=== PATIENT | male | born 1935 | race Caucasian/White ===

== ENCOUNTER 2020-11-11 10:00 | Emergency (ER) | payer MEDICARE, BC ==
[2020-11-11 10:11] VITALS: BP 142/73
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
== END 2020-11-11 11:26 | disposition home or self-care (01) ==
LOC: ED 10:00
DX: Z76.0 Encounter for issue of repeat prescription (principal); G89.29 Other chronic pain; M54.5 Low back pain
CPT/HCPCS: 99282; 99283

== ENCOUNTER 2023-04-26 11:12 | Outpatient (CLI) | payer MEDICARE, BC | END 2023-04-26 23:59 | disposition critical access hospital (66) | LOC: MERGE 11:12 → EMS 11:12 | DX: R41.0 Disorientation, unspecified (principal); S01.81XA Laceration without foreign body of other part of head, initial encounter; S01.01XA Laceration without foreign body of scalp, initial encounter; S70.211A Abrasion, right hip, initial encounter; W18.30XA Fall on same level, unspecified, initial encounter; Y92.028 Other place in mobile home as the place of occurrence of the external cause; T68.XXXA Hypothermia, initial encounter; X31.XXXA Exposure to excessive natural cold, initial encounter | CPT/HCPCS: A0425; A0427 ==

== ENCOUNTER 2023-04-26 11:41 | Inpatient (IN) | payer MEDICARE, BC ==
[2023-04-26] MEDS ORDERED: iohexoL-300 100 ML VIAL ONE (11:48)
[2023-04-26] MEDS ORDERED: TETANUS/DIPHTHERIA/PERTUSSIS 0.5 ML SYRINGE IM ONE (11:49)
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
[2023-04-26 12:02] LABS: VBG PH 7.416 (7.31-7.41)
[2023-04-26 12:03] LABS: VBG BASE EXCESS -2.3 mmol/L (-2 - +2); VBG HCO3 21.9 mmol/L (23-28); VBG OXYGEN SATURATION 97.6 % (60-80); VBG PCO2 34.8 mmHg (41-51); VBG PO2 120.9 mmHg (25-47); VBG TOTAL CO2 22.9 mmol/L (24-29)
[2023-04-26 12:07] LABS: BASOPHILS % (AUTO) 0.6 %; EOSINOPHILS % (AUTO) 0.6 %; HCT - HEMATOCRIT 24.8 % (42.0-52.0); HGB - HEMOGLOBIN 8.6 g/dL (14.0-18.0); LYMPHOCYTES % (AUTO) 17.9 %; MEAN CORPUSCULAR HEMOGLOBIN 37.6 pg (27.0-31.0); MEAN CORPUSCULAR HGB CONC 34.7 g/dL (32.0-36.0); MEAN CORPUSCULAR VOLUME 108.3 fL (80.0-94.0); MEAN PLATELET VOLUME 10.3 fL (7.4-11.4); MONOCYTES % (AUTO) 6.5 %; NEUTROPHILS % (AUTO) 74.4 %; PLT - PLATELET COUNT 87 10^3/uL (130-450); RED BLOOD COUNT 2.29 10^6/uL (4.70-6.10); RED CELL DISTRIBUTION WIDTH 12.6 % (12.0-15.0)
[2023-04-26 12:10] LABS: WHITE BLOOD COUNT 1.7 x10^3/uL (4.8-10.8)
[2023-04-26 12:12] LABS: ABNORMAL LYMPHS % (MANUAL) 0 %
[2023-04-26 12:16] LABS: INR 1.2 (0.8-1.2)
[2023-04-26 12:23] LABS: ETOH - ETHANOL 83.7 mg/dL
[2023-04-26 12:24] LABS: ALBUMIN 2.2 g/dL (3.2-5.5); BILIRUBIN,TOTAL 0.7 mg/dL (0.2-1.0); CALCIUM 7.8 mg/dL (8.5-10.3); CREATININE 0.5 mg/dL (0.6-1.3); TOTAL PROTEIN 4.4 g/dL (6.4-8.9)
[2023-04-26 12:25] LABS: LACTIC ACID, VENOUS 4.1 mmol/L (0.5-2.2)
[2023-04-26 12:28] LABS: BILIRUBIN,URINE NEGATIVE (NEGATIVE); GLUCOSE, URINE (UA) NEGATIVE (NEGATIVE); KETONES,URINE (UA) NEGATIVE (NEGATIVE); LEUKOCYTE ESTERASE, URINE NEGATIVE (NEGATIVE); NITRITE,URINE NEGATIVE (NEGATIVE); OCCULT BLOOD,URINE TRACE-INTA (NEGATIVE); PROTEIN,URINE NEGATIVE (NEGATIVE); UROBILINOGEN,URINE 1 (NORMAL) E.U./dL (NORMAL)
[2023-04-26 12:29] LABS: CLARITY,URINE CLEAR (CLEAR)
[2023-04-26 12:31] LABS: BACTERIA,URINE Rare /HPF (None Seen); RBC,URINE 0-5 /HPF (0-5); SQUAMOUS EPITHELIAL CELL,UR FEW Squamous (<= Few); WBC,URINE 0-3 /HPF (0-3)
[2023-04-26 12:32] LABS: THYROID STIMULATING HORMONE 1.13 uIU/mL (0.34-5.60)
[2023-04-26 12:35] LABS: BAND NEUTROPHILS % (MANUAL) 9 %; LYMPHOCYTES # (MANUAL) 0.3 10^3/uL (1.5-3.5); LYMPHOCYTES % (MANUAL) 15 %; MONOCYTES # (MANUAL) 0.1 10^3/uL (0.0-1.0); NEUTROPHILS # (MANUAL) 1.4 10^3/uL (1.5-6.6)
[2023-04-26 12:36] LABS: DIFFERENTIAL COMMENT MANUAL DIFFERENTIAL; PLATELET ESTIMATE, MANUAL DECREASED (<130,000) (NORMAL); PLATELET MORPHOLOGY 1+ LARGE PLATELETS (NORMAL); WBC MORPHOLOGY (MULTIPLE) NORMAL APPEARANCE (NORMAL)
[2023-04-26 12:36] LABS: AMPHETAMINE SCREEN,URINE NEGATIVE (NEGATIVE); BARBITURATE SCREEN,UR NEGATIVE (NEGATIVE); BENZODIAZEPINES SCREEN, URINE NEGATIVE (NEGATIVE); BUPRENORPHINE SCREEN, URINE NEGATIVE (NEGATIVE); COCAINE SCREEN URINE NEGATIVE (NEGATIVE); METHADONE SCREEN, URINE NEGATIVE (NEGATIVE); METHAMPHETAMINES SCREEN, URINE NEGATIVE (NEGATIVE); OPIATE SCREEN, URINE NEGATIVE (NEGATIVE); OXYCODONE SCREEN, URINE POSITIVE (NEGATIVE); THC CANNABINOID SCREEN, URINE NEGATIVE (NEGATIVE); TRICYCLIC ANTIDEPRESSANT,URINE NEGATIVE (NEGATIVE)
[2023-04-26] MEDS: iohexoL-300 100 ML VIAL IVP ONE (12:53)
[2023-04-26] MEDS: CEFEPIME 2 GM in SODIUM CHLORIDE 0.9% MINIBAG 100 ML IV STA (12:54)
[2023-04-26] MEDS: metroNIDAZOLE 500 MG/100 ML 500 MG/100 ML BAG IV STA (12:57)
--- NOTE | 2023-04-26 13:09 | CT Report ---
PROCEDURE: Head WO INDICATIONS: Head trauma, abnormal mental status TECHNIQUE: Noncontrast 4.5 mm thick angled axial sections acquired from the foramen magnum to the vertex. For r adiation dose reduction, the following was used: automated exposure control, adjustment of mA and/or kV according to patient size. COMPARISON: Correlation is made with the accompanying imaging. FINDINGS: Image quality: Excellent. CSF spaces: Basal cisterns are patent. No extra-axial fluid collections. Ventricles are normal in size and shape. Brain: No midline shift. No intracranial masses or hemorrhage. Real-white matter interface is norm al. Low density seen involving the right temporal lobe, as on series 2 image 11 and on series 6 imag e 21. Age-appropriate brain parenchymal volume loss and chronic small vessel ischemic change can be s een. Skull and face: There is a mild left forehead hematoma seen, as on series 2 image 16. No associated calvarial fracture can be seen. Calvarium and visualized facial bones are intact, without suspicious lesions. Sinuses: Visualized sinuses and mastoids are clear. IMPRESSION: Left forehead scalp hematoma, without an associated calvarial fracture. No intracranial hemorrhage is seen. No significant intracranial abnormality is seen. There is focal low density seen involving the right temporal lobe, which is attributed to a remote in farct. Reviewed by: Kb Patel MD on 04/26/2023 12:08 PM [facility] Approved by: Kb Patel MD on 04/26/2023 12:08 PM [facility] Station ID: [id number]
--- NOTE | 2023-04-26 13:17 | CT Report ---
PROCEDURE: Cervical Spine WO INDICATIONS: Neck trauma, midline tenderness TECHNIQUE: Noncontrast 3 mm thick sections acquired from the skull base to the T4 level. Sagittal and coronal r eformats were then constructed. For radiation dose reduction, the following was used: automated exp osure control, adjustment of mA and/or kV according to patient size. COMPARISON: Correlation is made with the accompanying imaging. FINDINGS: Image quality: Motion artifact is noted. Bones: Moderately displaced are seen involving the anterior aspects of the C3 and C4 levels, as seen on series 13 image 41. Over the anterior columns are involved, without involvement of the middle colu mns or the posterior elements. Focal degenerative change can be seen involving the C1-C2 interface anteriorly. There is moderate to severe disc space narrowing at C3-C4, C5-C6, and C6-C7. Posterior directed endplate osteophytes can b e seen at C5-C6 and at C6-C7. Soft tissues: Prevertebral soft tissues are normal in thickness. No paravertebral hematomas. No ap ical pneumothoraces. Atherosclerotic calcification is seen. IMPRESSION: Moderately displaced fractures can be seen involving the anterior aspects of the C3 and C4 levels, wi thout involvement of the middle and posterior columns. Note: Case discussed by telephone with Dr. Rubio at 1:15 PM [place] time on 04/26/2023. Reviewed by: Kb Patel MD on 04/26/2023 12:16 PM [facility] Approved by: Kb Patel MD on 04/26/2023 12:16 PM [facility] Station ID: [id number]
--- NOTE | 2023-04-26 13:20 | CT Report ---
PROCEDURE: Chest W INDICATIONS: Chest trauma, blunt, low energy CONTRAST: 100ml omni 300 TECHNIQUE: After the administration of intravenous contrast, a CT scan of the chest was performed. Images were recorded and evaluated at appropriate window settings. Reformats: axial MIP of the chest, coronal and sagittal. For radiation dose reduction, the following was used: automated exposure control, adjustme nt of mA and/or kV according to patient size. COMPARISON: Correlation is made with the accompanying imaging. FINDINGS: Image quality: Excellent. Lungs and pleura: No consolidation. There is a small left-sided pleural effusion. No pneumothorax is seen. No suspicious pulmonary nodules which require follow up. Mediastinum: There is a mild amount of pulmonary embolism seen within the right lower lobe, involving the segmental and subsegmental arteries. Heart size is normal. No pericardial effusion. There is mild to moderate coronary artery calcificatio n No large vessel abnormality. No mediastinal adenopathy by size criteria. Chest wall and lower neck: Thyroid is unremarkable. No axillary or supraclavicular adenopathy by size . Bones: No aggressive osseous abnormality. Multiple remote appearing rib fractures are seen, left more numerous than right. There is a remote appearing T12 fracture seen. Upper Abdomen: Unremarkable. IMPRESSION: A small amount of right-sided pulmonary embolism can be seen involving the segmental and subsegmental pulmonary arteries. There is a small left-sided pleural effusion. Additional findings: Remote appearing bilateral rib fractures, left more numerous than right Remote appearing T12 fracture Mild to moderate coronary artery calcification Note: Case discussed by telephone with Dr. Rubio at 1:15 PM [place] time on 04/18/2023. Reviewed by: Kb Patel MD on 04/26/2023 12:19 PM [facility] Approved by: Kb Patel MD on 04/26/2023 12:19 PM [facility] Station ID: [id number]
--- NOTE | 2023-04-26 13:22 | CT Report ---
PROCEDURE: Abdomen/Pelvis W INDICATIONS: Abdominal trauma, blunt CONTRAST: 100ml omni 300 TECHNIQUE: After the administration of intravenous contrast, a CT scan of the abdomen and pelvis was performed. Images were recorded and evaluated at appropriate window settings. Reformats: coronal and sagittal. F or radiation dose reduction, the following was used: automated exposure control, adjustment of mA and /or kV according to patient size. COMPARISON: None. FINDINGS: Image quality: Excellent. Lung bases and heart: A small left-sided pleural effusion can be seen. Liver: No solid mass. Gallbladder and biliary tree: Within normal limits. Spleen: No splenomegaly. Pancreas: No pancreatic ductal dilation. Adrenals: No adrenal nodule. Kidneys and ureters: No hydronephrosis. No renal cystic lesion which requires follow up. No solid mas s. Bowel and peritoneum: Moderate wall thickening can be seen throughout the colon. No findings of perfo ration or abscess can be seen. The stomach demonstrates no significant abnormality. No dilated loops of small bowel are seen. Lymph nodes: No central or retroperitoneal adenopathy. Vessels: No infrarenal aortic aneurysm. PELVIS Reproductive organs: Unremarkable. Bladder: A Parekh catheter seen, which decompresses the bladder. Pelvic lymph nodes: No pelvic adenopathy by size criteria. Bones: No aggressive osseous abnormality. There is a remote appearing T12 fracture. Other: No significant ventral or inguinal hernia. Postoperative change can be seen of the anterior ab dominal wall, with numerous sutures. Mild dextroconvex scoliotic curvature is seen. IMPRESSION: Generalized colonic wall thickening can be seen. Please correlate with potential infectious and infla mmatory causes of colitis. No findings of perforation or abscess can be seen. Additional findings: Small pleural effusion Remote appearing T12 fracture Dextroconvex scoliotic curvature Anterior abdominal wall postoperative change, with sutures Parekh catheter Note: Case discussed by telephone with Dr. Rubio at 1:15 PM [place] time on 04/18/2023. Reviewed by: Kb Patel MD on 04/26/2023 12:21 PM [facility] Approved by: Kb Patel MD on 04/26/2023 12:21 PM [facility] Station ID: [id number]
[2023-04-26] MEDS: VANCOMYCIN INJ 1.5 GM in SODIUM CHLORIDE 0.9% 500 ML IV STA (13:29)
[2023-04-26] MEDS: THIAMINE INJ 100 MG in SODIUM CHLORIDE 0.9% 50 ML IV STA (13:34)
[2023-04-26] MEDS: POTASSIUM CHLOR 10 MEQ/100 ML 10 MEQ/100 ML BAG IV STA ×2 (13:40→14:44)
[2023-04-26] MEDS: TETANUS/DIPHTHERIA/PERTUSSIS 0.5 ML SYRINGE IM ONE (13:42)
[2023-04-26] MEDS: HEPARIN 25000UNITS/500ML (D5W) 25,000 UNIT/500 ML BAG IV SCH (13:54)
[2023-04-26] MEDS: MAGNESIUM SULFATE 2 GRAM 2 GM/50 ML BAG IV ONE (14:10)
[2023-04-26] MEDS: SODIUM CHLORIDE 0.9% 1,000 ML IV STA (14:11)
[2023-04-26 14:38] LABS: B. PARAPERTUSSIS- RESP PCR PAN NOT DETECTED; B. PERTUSSIS- RESP PCR PANEL NOT DETECTED; C. PNEUMONIAE- RESP PCR PANEL NOT DETECTED; CORONAVIRUS 229E-RESP PCR NOT DETECTED; CORONAVIRUS HKU1-RESP PCR NOT DETECTED; CORONAVIRUS NL63-RESP PCR NOT DETECTED; CORONAVIRUS OC43-RESP PCR NOT DETECTED; HUMAN METAPNEUMOVIRUS NOT DETECTED; INFLUENZA A- RESP PCR PANEL NOT DETECTED; INFLUENZA B - RESP PCR PANEL NOT DETECTED; M. PNEUMONIAE- RESP PCR PANEL NOT DETECTED; PARAINFLUENZA VIRUS 1 NOT DETECTED; PARAINFLUENZA VIRUS 2 NOT DETECTED; PARAINFLUENZA VIRUS 3 NOT DETECTED; PARAINFLUENZA VIRUS 4 NOT DETECTED; RHINOVIRUS/ENTEROVIRUS NOT DETECTED; RSV- RESP PCR PANEL NOT DETECTED; SARS-CoV-2 -RESP PCR PANEL NOT DETECTED
[2023-04-26] MEDS: LACTATED RINGERS 1,000 ML IV STA (14:49)
[2023-04-26 17:55] LABS: CALCIUM 7.1 mg/dL (8.5-10.3); CREATININE 0.4 mg/dL (0.6-1.3); MAGNESIUM 1.9 mg/dL (1.7-2.3); PHOSPHORUS 2.7 mg/dL (2.5-5.0); POTASSIUM 2.7 mmol/L (3.5-4.5)
[2023-04-26 17:57] LABS: LACTIC ACID, VENOUS 3.3 mmol/L (0.5-2.2)
[2023-04-26] MEDS ORDERED: ONDANSETRON 4 MG/2 ML VIAL IVP PRN (18:06)
[2023-04-26] MEDS ORDERED: LORazepam 2 MG/ML VIAL IVP PRN (18:12)
--- NOTE | 2023-04-26 18:28 | HISTORY & PHYSICAL EXAMINATION ---
Chief Complaint - Chief Complaint Chief Complaint: Found down, Hypothermic History of Present Illness - Admitted From Admitted From:: ED - History Obtained From Records Reviewed: Yes History obtained from: ED provider - History of Present Illness HPI Comment/Other: This is an 87-year-old male with a history of alcohol abuse and oxycodone use. He lives in a trailer behind a family's house [place] their property. There is a history of coronary stenting done in 2000, mild dementia. The patient was last seen last night. Today at noon he was found down on the ground of his trailer where there was no heat. Head trauma was noted. During transfer by EMS he had a temperature of 27 C. Upon presentation to ER his temperature was 29 C and he was very bradycardic with heart rates in the 40s. EKG showed sinus bradycardia, QRS widening and QT prolongation. BP started normal then has dropped to 89 systolic and 79 systolic. The patient was awake b ut only mumbling and his exam showed a scrape over the left forehead. Labs show WBC 1.7, hemoglobin 8.6, platelet count 87,000, INR normal, potassium normal, AST 105, ALT 43, CK 707, lactic acid 4.1 then after several hours lactic acid 3 then repeat again 3.3. Urinalysis normal. Urine tox was positive for oxycodone and alcohol level was 83. He had CT imaging done from head to groin. His head CT showed no trauma, no bleed, and a remote stroke. His CT spine imaging showed a fracture of C3 and C4 which was evaluated by the spine unit at and recommendation were for no fixation and to keep him in a collar and repeat imaging in [address] showed he has multiple old rib fractures and a right-sided pulmonary embolism and the patient has been started on a Heparin drip. Cardiac size was normal and no adenopathy was seen. Abdomen CT showed he has colitis and he was given IV Cefepime, IV Flagyl and IV Vanco in the ER. He also had a femoral line CVP placed and a Parekh catheter placed while in the ER. The ED provider was in contact with the family who confirmed he is a DNR/DNI and daughter who is POA was told he may not survive this hospitalization. The ED provider then spoke to me about this case. The patient will be admitted to the ICU in critical condition. History - Past Medical History Cardiovascular: reports: Hypertension, Coronary artery disease (stented ~2000) Neuro: reports: Dementia Musculoskeletal: reports: Chronic back pain Other Past Medical History: anemia, alcohol abuse - Past Surgical History Cardiovascular: reports: Coronary stent - Family & Social History Living arrangement: At home Living Situation: Alone Social History Notes: He lives in a trailer. He drinks "a lot" per daughter. Cigarette use unknown. - POLST Patient has POLST: Yes POLST Status: DNR Meds/Allgy - Home Medications Home Medications: Ambulatory Orders Medication Instructions Recorded Confirmed Aspirin EC [Ecotrin] 81 mg PO DAILY 04/26/23 04/26/23 Atorvastatin Calcium [Lipitor] 80 mg PO DAILY 04/26/23 04/26/23 Benazepril HCl [Lotensin] 20 mg PO DAILY 04/26/23 04/26/23 Ferrous Sulfate [Slow Fe] 137 mg PO DAILY 04/26/23 Ibuprofen [Motrin] 1 tablet PO BID 04/26/23 04/26/23 Multivitamin 1 each PO DAILY 04/26/23 04/26/23 Oxycodone HCl/Acetaminophen 1 each PO BID 04/26/23 [Percocet 10-325 mg Tablet] Prednisone [Dorian] 5 mg PO Q48H 04/26/23 04/26/23 Promethazine [Phenergan] 25 mg PO DAILY 04/26/23 04/26/23 Naproxen Sodium [Aleve] 220 mg PO HS 04/27/23 Triamcinolone 0.1% Cream [Kenalog 1 applic TOP PRN PRN 04/27/23 0.1% Cream] - Allergies Allergies/Adverse Reactions: Allergies Allergy/AdvReac Type Severity Reaction Status Date / Time No Known Drug Allergies Allergy Verified 04/27/23 10:06 Review of Systems - All Other Systems All Other Systems: reports: Other (Unable to obtain since the patient is altered mental status, is hypothermic.) Exam - Vital Signs Reviewed Vital Signs: Yes Vital Signs: Vital Signs x48h Temp Pulse Resp BP Pulse Ox 04/26/23 18:00 33.5 C L 62 16 91/61 97 04/26/23 17:30 32.9 C L 58 L 15 92/68 97 04/26/23 17:00 32 C L 53 L 11 L 89/56 L 97 04/26/23 16:30 31.7 C L 59 L 12 93/62 97 04/26/23 16:15 90/60 04/26/23 16:00 89/59 L 04/26/23 15:45 30.9 C L 50 L 11 L 90/59 L 99 04/26/23 15:30 30.9 C L 87/59 L 04/26/23 15:22 30.7 C L 48 L 13 87/56 L 98 04/26/23 15:15 30.7 C L 49 L 11 L 79/56 L 99 04/26/23 15:14 30.6 C L 46 L 15 79/56 L 99 04/26/23 14:51 30.6 C L 45 L 13 77/55 L 99 04/26/23 14:30 30.7 C L 46 L 14 89/62 L 99 04/26/23 14:10 30.8 C L 43 L 13 78/53 L 99 04/26/23 13:45 30.8 C L 73 10 L 83/56 L 100 04/26/23 13:33 30.8 C L 45 L 16 88/61 L 99 04/26/23 13:10 30.8 C L 47 L 14 99/61 99 04/26/23 12:50 30.8 C L 47 L 12 98/58 L 99 04/26/23 12:26 30.6 C L 41 L 16 111/67 99 04/26/23 11:54 30.9 C L 44 L 22 115/66 98 - Physical Exam General Appearance: positive: No acute distress (Thin elderly male, pale, supine in a c-collar, follows to voice with his eyes), Lethargic (Opens eyes to name, is grunting answers.), Other (Has bruises on both sides of forehead with dried blood. Thin (BMI 19) and very pale.) Eyes Bilateral: positive: EOMI, No lid inflammation ENT: positive: Other (Cannot visualize oropharynx due to c-collar and mouth is closed) Neck: positive: Other (C-collar in place) Respiratory: positive: No respiratory distress, Other (Poor air movement in all lung gale but no wheezing or rales) Cardiovascular: positive: Regular rate & rhythm, No murmur (Distant heart sounds due to probable COPD) Abdomen: positive: Non-tender, No distention, Other (Diminished bowel sounds. No guarding or rebound.) Skin: positive: Dry (Cool extremities, warm trunk), Pallor Extremities: positive: No pedal edema, Other (Multiple bruises) Neurologic/Psychiatric: positive: Other (Eyes are open, his eyes followed to voice, he answers with a mumble) Conclusion/Plan - Problem List (1) Hypothermia Conclusion/Plan: This is likely from exposure to the elements (he lives in a trailer with no heat and may have been down for many ~15 hours), and may also be from septic shock. His bradycardia is also consistent with Hypothermia. Plan: Admit to ICU Warming unit Warm IV fluids if possible Treat underlying problems Qualifiers: Encounter type: initial encounter Qualified Code(s): T68.XXXA - Hypot hermia, initial encounter (2) Pulmonary embolism Conclusion/Plan: This patient is not hypoxic. The PE is small and peripheral Plan: He has been started on IV heparin. Will be following his labs to assure he is therapeutic When he is awake we will transition him to oral Eliquis Will obtain an Echo Qualifiers: Pulmonary embolism type: single subsegmental (without acute cor pulmonale) Qualified Code(s): I26.93 - Single subsegmental pulmonary embolism without acute cor pulmonale (3) C3 cervical fracture Conclusion/Plan: Plan: Remain in c-collar Will give IV pain meds Qualifiers: Encounter type: initial encounter Fracture type: closed Fracture morphology: unspecified fracture morphology Fracture alignment: nondisplaced Qualified Code(s): S12.201A - Unspecified nondisplaced fracture of third cervical vertebra, initial encounter for closed fracture (4) C4 cervical fracture Conclusion/Plan: As above in #3 Qualifiers: Encounter type: initial encounter Fracture type: closed Fracture morphology: unspecified fracture morphology Fracture alignment: nondisplaced Qualified Code(s): S12.301A - Unspecified nondisplaced fracture of fourth cervical vertebra, initial encounter for closed fracture (5) Colitis Conclusion/Plan: Plan: Continue with empiric antibiotics of Cefepime and Flagyl As he awakens we will start with clear liquids then advance to a soft, bland diet (6) Alcoholism Conclusion/Plan: Daughter said that he drinks "a lot" but did not specify amount or type of alcohol. He did have a blood alcohol level present of 83. He is cachectic (BMI 19), his AST is twice his ALT, elev Alk Phos and low plts are all consistent with alcohol abuse. Plan: Begin a CIWA protocol with high-dose IV Ativan as needed for elevated CIWA scores When he is awake and can swallow reliably, we will start him on Librium Begin a banana bag IV Will eventually transition to daily thiamine and multivitamins When he is medically cleared, will obtain social work consult (7) Shock circulatory Conclusion/Plan: This is likely multifactorial: From volume depletion, alcohol abuse, septic shock is a possibility and from his anemia Plan: A femoral CVP line was placed in the ER, because he has a c-collar Give IV fluids in the form of NS and a banana bag Treat for potential septic shock with broad-spectrum antibiotics, however the most likely source since colitis was seen on CT imaging Await blood culture results to tailor antibiotics Follow his lactic acid level till it normalizes Start iv pressors if needed to keep MAP greater than 65 Parekh to monitor I's and O's in this critically ill patient (8) Fall at home Conclusion/Plan: According to what the daughter told the ED provider, he has fallen before. This is evidenced by findings of his multiple old rib fractures on imaging of his chest. The patient takes oxycodone which the daughter has been trying to decrease slowly to decrease his risk of falls. He was last seen about 15 hours before being found down from this fall. Exam showed a swollen hand but there was no trauma. However, he does have Rhabdomyolysis from being on thr ground a long time Plan: If he survives this hospitalization he will need PT and OT rehab and the daughter has stated she was already planning a long-term care facility for him (9) Rhabdomyolysis Conclusion/Plan: Related to being down on the ground for hours Plan: IV NS for hydration Follow serum CK to assure there is decreasing Follow BUN/creatinine and avoid other nephrotoxins (10) Pancytopenia Conclusion/Plan: WBC 1.7, Hgb 8.6, plts 87K. This is likely from his chronic alcohol use but we do not know if he has other comorbidities such as a malignancy. We have no old labs for comparison, he has never been here before. Plan: Follow CBC daily The platelet count will have to be monitored carefully while he is getting iv Heparin or any anticoagulant He is already been typed and crossmatched and would give a transfusion when hemoglobin is below 7 - Lab Results Fish Bones: 04/27/23 04:42 04/27/23 10:40 - Diagnostic Imaging Results Diagnostic Imaging Results: positive: Final report reviewed - Other Other Results/Comments: Attestation: The patient is expected to be hospitalized for greater than 2 midnights and is expected to be discharged or transferred to another facility within 96 hours: Yes.
[2023-04-26] MEDS ORDERED: HEPARIN 25000UNITS/500ML (D5W) 25,000 UNIT/500 ML BAG IV SCH (19:00)
[2023-04-26] MEDS ORDERED: IPRATROPIUM/ALBUTEROL 3 ML NEB INH PRN (19:07)
[2023-04-26] MEDS: POTASSIUM CHLOR 10 MEQ/100 ML 10 MEQ/100 ML BAG IV SCH (19:39)
[2023-04-26] MEDS: CALCIUM CHLORIDE ABBOJECT 1000MG/10 ML SYRINGE IVP ONE (19:40)
[2023-04-26] MEDS: SODIUM CHLORIDE 0.9% 1,000 ML IV SCH ×2 (19:52→21:24)
[2023-04-26] MEDS: SODIUM CHLORIDE 0.9% 500 ML IV ONE (19:52)
[2023-04-26] MEDS: ACETAMINOPHEN 1,000 MG/100 ML 1,000 MG/100 ML BAG IV PRN (20:27)
[2023-04-26] MEDS: POTASSIUM CHLOR 20 MEQ/100 ML 20 MEQ/100 ML BAG IV ONE (21:17)
[2023-04-26] MEDS: MULTIVITAMIN 10 ML, THIAMINE INJ 100 MG, FOLIC ACID INJ 1 MG in SODIUM CHLORIDE 0.9% 1,... IV SCH (21:17)
[2023-04-26] MEDS: CHLORHEXIDINE GLUCONATE 15 ML UDC PO SCH (21:17)
[2023-04-26] MEDS: FAMOTIDINE 20 MG/2 ML VIAL IVP SCH (21:33)
[2023-04-26] MEDS: CEFEPIME 1 GM in SODIUM CHLORIDE 0.9% MINIBAG 100 ML IV SCH (21:33)
[2023-04-26] MEDS: metroNIDAZOLE 500 MG/100 ML 500 MG/100 ML BAG IV SCH (21:34)
[2023-04-26] MEDS: SODIUM CHLORIDE 0.9% 1,000 ML IV ONE (23:07)
[2023-04-27] MEDS: SODIUM CHLORIDE 0.9% 1,000 ML IV ONE (00:29)
[2023-04-27] MEDS: SODIUM CHLORIDE FLUSH 0.9% 10 ML SYRINGE IVP SCH (00:32)
[2023-04-27] MEDS ORDERED: APIXABAN 5 MG TABLET PO SCH ×3 (02:00→09:00)
[2023-04-27 02:10] LABS: HGB - HEMOGLOBIN 5.9 g/dL (14.0-18.0)
[2023-04-27 02:11] LABS: HCT - HEMATOCRIT 17.8 % (42.0-52.0)
[2023-04-27] MEDS: MIDODRINE 2.5 MG TABLET PO PRN (02:19)
[2023-04-27 04:55] LABS: BASOPHILS % (AUTO) 0.2 %; HCT - HEMATOCRIT 21.8 % (42.0-52.0); LYMPHOCYTES # (AUTO) 0.3 10^3/uL (1.5-3.5); LYMPHOCYTES % (AUTO) 5.3 %; MEAN CORPUSCULAR HEMOGLOBIN 36.5 pg (27.0-31.0); MEAN CORPUSCULAR HGB CONC 32.1 g/dL (32.0-36.0); MEAN CORPUSCULAR VOLUME 113.5 fL (80.0-94.0); MEAN PLATELET VOLUME 10.4 fL (7.4-11.4); MONOCYTES # (AUTO) 0.3 10^3/uL (0.0-1.0); MONOCYTES % (AUTO) 5.9 %; NEUTROPHILS # (AUTO) 4.2 10^3/uL (1.5-6.6); PLT - PLATELET COUNT 98 10^3/uL (130-450); RED BLOOD COUNT 1.92 10^6/uL (4.70-6.10); WHITE BLOOD COUNT 4.7 x10^3/uL (4.8-10.8)
[2023-04-27 05:03] LABS: SLIDE REVIEW? Indicated
[2023-04-27 05:04] LABS: CALCIUM, IONIZED 1.07 mmol/L (1.15-1.33); VBG PH 7.387 (7.31-7.41)
[2023-04-27 05:20] LABS: ALBUMIN 1.8 g/dL (3.2-5.5); ALBUMIN/GLOBULIN RATIO 1.1 (1.0-2.2); BILIRUBIN,TOTAL 0.8 mg/dL (0.2-1.0); CALCIUM 7.1 mg/dL (8.5-10.3); CREATININE 0.5 mg/dL (0.6-1.3); MAGNESIUM 1.6 mg/dL (1.7-2.3); PHOSPHORUS 3.6 mg/dL (2.5-5.0); POTASSIUM 3.7 mmol/L (3.5-4.5); TOTAL PROTEIN 3.5 g/dL (6.4-8.9)
[2023-04-27] MEDS: POTASSIUM CHLOR 20 MEQ/100 ML 20 MEQ/100 ML BAG IV ONE (06:24)
[2023-04-27] MEDS: MAGNESIUM SULFATE 2 GRAM 2 GM/50 ML BAG IV ONE (06:29)
[2023-04-27 06:53] LABS: PLATELET ESTIMATE, MANUAL DECREASED (<130,000) (NORMAL); PLATELET MORPHOLOGY NORMAL APPEARANCE (NORMAL)
[2023-04-27] MEDS: CALCIUM GLUC 1,000MG/50ML-NACL 1,000 MG/50 ML BAG IV ONE (08:34)
[2023-04-27] MEDS ORDERED: NOREPINEPHRINE/0.9 % NS 8 MG/250 ML BAG IV ONE (08:52)
--- NOTE | 2023-04-27 08:52 | XRAY Report ---
PROCEDURE: Chest 1V INDICATIONS: Hypoxia after getting iv fluids TECHNIQUE: One view of the chest was acquired. COMPARISON: CT chest 04/18/2023 FINDINGS: Surgical changes and devices: None. Lungs and pleura: Minimal effusions, left greater than right. Mild appearance of diffuse hazy opacit ies bilaterally. Mediastinum: Mediastinal contours appear normal. Heart size is normal. Bones and chest wall: No suspicious bony lesions. Overlying soft tissues appear unremarkable. IMPRESSION: Diffuse appearance of hazy bilateral opacities which may represent effusions and/or superimposed kristina a. Reviewed by: Pat Navarro MD on 04/27/2023 8:51 AM PST Approved by: Pat Navarro MD on 04/27/2023 8:51 AM PST Station ID: [id number]
[2023-04-27] MEDS: NOREPINEPHRINE/0.9 % NS 8 MG/250 ML BAG IV SCH (09:02)
[2023-04-27] MEDS: HYDROmorphone 0.5 MG/0.5 ML SYRINGE IVP PRN (09:20)
[2023-04-27] MEDS ORDERED: FUROSEMIDE 20 MG/2 ML VIAL IVP ONE (11:00)
[2023-04-27] MEDS: FUROSEMIDE 20 MG/2 ML VIAL IVP STA (11:01)
[2023-04-27 11:27] LABS: BUN - BLOOD UREA NITROGEN 12 mg/dL (6-20); CALCIUM 7.5 mg/dL (8.5-10.3); CARBON DIOXIDE - CO2 17 mmol/L (21-32); CHLORIDE 113 mmol/L (101-111); CREATININE 0.6 mg/dL (0.6-1.3); GFR - MDRD 127 (>89); GLUCOSE 114 mg/dL (74-104); IONIZED CALCIUM IF INDICATED YES; MAGNESIUM 2.1 mg/dL (1.7-2.3); SODIUM 140 mmol/L (135-145)
[2023-04-27 11:30] LABS: CALCIUM, IONIZED 1.11 mmol/L (1.15-1.33); VBG PH 7.369 (7.31-7.41)
--- NOTE | 2023-04-27 11:54 | PHARMACY PROGRESS NOTE ---
- Therapy Status Therapy status: Awaiting steady state Basis for treatment: Empirical Treatment indication: Septic shock Trough goal: AUC/MIKHAIL 400-600 Concurrent antibiotics: Cefepime and metronidazole - ALEJANDRA Risk Risk level for Acute Kidney Injury: Moderate Acute Kidney Injury risk factors: Admission to ICU, Sepsis - Monitoring and Recommendation Clinical response to treatment: I&O Previous 24 hours 04/25/23 04/26/23 04/27/23 23:59 23:59 23:59 Intake Total 4101 3611.014 Output Total 665 125 Balance 3436 3486.014 Lab Results 04/27/23 04/27/23 04/26/23 10:40 04:42 17:34 BUN 12 11 9 Creatinine 0.6 0.5 L 0.4 L Estimated GFR (MDRD) 127 157 203 04/26/23 11:53 BUN 9 Creatinine 0.5 L Estimated GFR (MDRD) 157 Monitoring plan: Daily serum creatinine, Suggest ongoing fluid replacement Areas for additional monitoring: IV to PO when appropriate, Therapy de- escalation based on culture results Pharmacy recommendation: Continue current regime (Loading dose of 1.5 grams given 04/26 @ ~1300. Initiate maintenance dose of 1.25 gram q24h for estimated AUC of 402 (with SCr rounded to 0.8 d/t age > 80))
--- NOTE | 2023-04-27 12:27 | PROVIDER PROGRESS NOTE ---
Subjective - Subjective Pt reports feeling: Improved (He follows with his eyes to voice. He is answering questions with a whisper. His answers to most questions are "I am too old".) Objective - Vital Signs/Intake & Output Vital Signs: Vital Signs Temp Pulse Resp BP Pulse Ox 04/27/23 12:05 37.4 C 70 14 113/80 04/27/23 12:00 72 14 113/80 96 04/27/23 11:00 72 16 119/66 98 04/27/23 10:30 37.1 C 68 21 102/66 97 04/27/23 10:15 37.0 C 73 16 105/62 99 04/27/23 10:00 37.0 C 71 16 100/83 H 99 04/27/23 09:45 36.9 C 71 16 103/59 L 99 04/27/23 09:30 36.8 C 71 19 106/55 L 98 04/27/23 09:15 36.7 C 73 21 111/58 L 99 04/27/23 09:00 36.7 C 68 23 83/54 L 98 04/27/23 08:55 36.7 C 69 24 71/52 L 98 04/27/23 08:26 36.7 C 68 20 78/49 L Intake & Output: Intake & Output 04/24/23 04/25/23 04/26/23 04/27/23 23:59 23:59 23:59 23:59 Intake Total 4101 3911.014 Output Total 665 185 Balance 3436 3726.014 - Objective General Appearance: positive: Moderate distress (He is not turning his head (is in a c-collar), follows to voice with his eyes only, and says he has headache and right shoulder pain. He is not in resp distress.) Eyes Bilateral: positive: No lid inflammation, No scleral icterus ENT: positive: Dry mucous membranes, Other (Pale) Neck: positive: Other (He is in a c-collar, so cannot eval) Respiratory: positive: Rales Cardiovascular: positive: Regular rate & rhythm, No murmur (Distant heart sounds, I suspect he has COPD) Abdomen: positive: Non-tender, No distention Skin: positive: Dry, Pallor Extremities: positive: No pedal edema, Other (Hs multiple small bruises in various stages of healing) Neurologic/Psychiatric: positive: Disoriented to place, Disoriented to time, Other (Is answering with a whisper, repeats the same answer: "I am too old") - Lab Results Fish Bones: 04/27/23 04:42 04/27/23 10:40 Other Labs: Lab Results x24hrs 04/27/23 04/27/23 04/27/23 Range/Units 10:40 10:40 04:42 WBC (4.8-10.8) x10^3/uL RBC (4.70-6.10) 10^6/uL Hgb (14.0-18.0) g/dL Hct (42.0-52.0) % MCV (80.0-94.0) fL MCH (27.0-31.0) pg MCHC (32.0-36.0) g/dL RDW (12.0-15.0) % Plt Count (130-450) 10^3/uL MPV (7.4-11.4) fL Neut # (Auto) Lymph # (Auto) [place] # (Auto) Eos # (Auto) Baso # (Auto) Absolute Nucleated RBC Total Counted Band Neuts % (Manual) (0 - 10) % Abnorm Lymph % (Manual) % Nucleated RBC % Neutrophils # (Manual) (1.5-6.6) 10^3/uL Lymphocytes # (Manual) (1.5-3.5) 10^3/uL Monocytes # (Manual) (0.0-1.0) 10^3/uL Eosinophils # (Manual) (0-0.7) 10^3/uL Basophils # (Manual) (0-0.1) 10^3/uL Differential Comment Manual Slide Review WBC Morphology (NORMAL) Platelet Estimate (NORMAL) Platelet Morphology (NORMAL) RBC Morph Micro Appear (NORMAL) APTT (24.9-33.3) secs VBG pH 7.369 (7.31-7.41) Ionized Calcium 1.11 L YES (1.15-1.33) mmol/L Sodium 140 (135-145) mmol/L Potassium 4.0 (3.5-4.5) mmol/L Chloride 113 H (101-111) mmol/L Carbon Dioxide 17 L (21-32) mmol/L Anion Gap 10.0 (6-13) BUN 12 (6-20) mg/dL Creatinine 0.6 (0.6-1.3) mg/dL Estimated GFR (MDRD) 127 (>89) Glucose 114 H (74-104) mg/dL POC Whole Bld Glucose (70 - 100) mg/dL Lactic Acid (0.5-2.2) mmol/L Calcium 7.5 L (8.5-10.3) mg/dL Phosphorus (2.5-5.0) mg/dL Magnesium 2.1 (1.7-2.3) mg/dL Total Bilirubin (0.2-1.0) mg/dL AST (10-42) IU/L ALT (10-60) IU/L Alkaline Phosphatase (42-121) IU/L Total Creatine Kinase (30-223) IU/L Troponin I High Sens (2.3-19.7) ng/L B-Natriuretic Peptide Total Protein (6.4-8.9) g/dL Albumin (3.2-5.5) g/dL Globulin (2.1-4.2) g/dL Albumin/Globulin Ratio (1.0-2.2) Vitamin B12 641 (180-914) pg/mL Folate 16.5 (5.90 - >24.8) ng/mL TSH (0.34-5.60) uIU/mL Urine Color Urine Clarity (CLEAR) Urine pH (5.0-7.5) PH Ur Specific Wells (1.002-1.030) Urine Protein (NEGATIVE) mg/dL Urine Glucose (UA) (NEGATIVE) mg/dL Urine Ketones (NEGATIVE) mg/dL Urine Occult Blood (NEGATIVE) Urine Nitrite (NEGATIVE) Urine Bilirubin (NEGATIVE) Urine Urobilinogen (NORMAL) E.U./dL Ur Leukocyte Esterase (NEGATIVE) Urine RBC (0-5) /HPF Urine WBC (0-3) /HPF Ur Squamous Epith Cells (<= Few) Urine Bacteria (None Seen) /HPF Urine Culture Comments Nasal Adenovirus (PCR) Nasal B. parapertussis DNA (PCR) Nasal Coronavir 229E PCR Nasal Coronavir HKU1 PCR Nasal Coronavir NL63 PCR Nasal Coronavir OC43 PCR Nasal Enterovir/Rhinovir PCR Nasal Influenza B PCR Nasal Influenza A PCR Nasal Parainfluen 1 PCR Nasal Parainfluen 2 PCR Nasal Parainfluen 3 PCR Nasal Parainfluen 4 PCR Nasal RSV (PCR) Nasal Screen MRSA (PCR) (NEGATIVE) Nasal B.pertussis DNA PCR Nasal C.pneumoniae (PCR) Bladimir Human Metapneumo PCR Nasal M.pneumoniae (PCR) Nasal SARS-CoV-2 (PCR) Urine Opiates Screen (NEGATIVE) Ur Buprenorphine Scrn (NEGATIVE) Ur Oxycodone Screen (NEGATIVE) Urine Methadone Screen (NEGATIVE) Ur Barbiturates Screen (NEGATIVE) Ur Tricyclics Screen (NEGATIVE) Ur Phencyclidine Scrn (NEGATIVE) Ur Amphetamine Screen (NEGATIVE) U Methamphetamines Scrn (NEGATIVE) U Benzodiazepines Scrn (NEGATIVE) Urine Cocaine Screen (NEGATIVE) U Cannabinoids Screen (NEGATIVE) Ur Drug Screen Comment Ethyl Alcohol mg/dL Blood Type Blood Type Recheck Antibody Screen Crossmatch IS Only 04/27/23 04/27/23 04/27/23 Range/Units 04:42 04:42 04:42 WBC (4.8-10.8) x10^3/uL RBC (4.70-6.10) 10^6/uL Hgb (14.0-18.0) g/dL Hct (42.0-52.0) % MCV (80.0-94.0) fL MCH (27.0-31.0) pg MCHC (32.0-36.0) g/dL RDW (12.0-15.0) % Plt Count (130-450) 10^3/uL MPV (7.4-11.4) fL Neut # (Auto) Lymph # (Auto) [place] # (Auto) Eos # (Auto) Baso # (Auto) Absolute Nucleated RBC Total Counted Band Neuts % (Manual) (0 - 10) % Abnorm Lymph % (Manual) % Nucleated RBC % Neutrophils # (Manual) (1.5-6.6) 10^3/uL Lymphocytes # (Manual) (1.5-3.5) 10^3/uL Monocytes # (Manual) (0.0-1.0) 10^3/uL Eosinophils # (Manual) (0-0.7) 10^3/uL Basophils # (Manual) (0-0.1) 10^3/uL Differential Comment Manual Slide Review WBC Morphology (NORMAL) Platelet Estimate (NORMAL) Platelet Morphology (NORMAL) RBC Morph Micro Appear (NORMAL) APTT (24.9-33.3) secs VBG pH 7.387 (7.31-7.41) Ionized Calcium 1.07 L (1.15-1.33) mmol/L Sodium (135-145) mmol/L Potassium (3.5-4.5) mmol/L Chloride (101-111) mmol/L Carbon Dioxide (21-32) mmol/L Anion Gap (6-13) BUN (6-20) mg/dL Creatinine (0.6-1.3) mg/dL Estimated GFR (MDRD) (>89) Glucose (74-104) mg/dL POC Whole Bld Glucose (70 - 100) mg/dL Lactic Acid (0.5-2.2) mmol/L Calcium (8.5-10.3) mg/dL Phosphorus (2.5-5.0) mg/dL Magnesium (1.7-2.3) mg/dL Total Bilirubin (0.2-1.0) mg/dL AST (10-42) IU/L ALT (10-60) IU/L Alkaline Phosphatase (42-121) IU/L Total Creatine Kinase (30-223) IU/L Troponin I High Sens 38.6 H* (2.3-19.7) ng/L B-Natriuretic Peptide 476 H Cancelled Total Protein (6.4-8.9) g/dL Albumin (3.2-5.5) g/dL Globulin (2.1-4.2) g/dL Albumin/Globulin Ratio (1.0-2.2) Vitamin B12 (180-914) pg/mL Folate (5.90 - >24.8) ng/mL TSH (0.34-5.60) uIU/mL Urine Color Urine Clarity (CLEAR) Urine pH (5.0-7.5) PH Ur Specific [place] (1.002-1.030) Urine Protein (NEGATIVE) mg/dL Urine Glucose (UA) (NEGATIVE) mg/dL Urine Ketones (NEGATIVE) mg/dL Urine Occult Blood (NEGATIVE) Urine Nitrite (NEGATIVE) Urine Bilirubin (NEGATIVE) Urine Urobilinogen (NORMAL) E.U./dL Ur Leukocyte Esterase (NEGATIVE) Urine RBC (0-5) /HPF Urine WBC (0-3) /HPF Ur Squamous Epith Cells (<= Few) Urine Bacteria (None Seen) /HPF Urine Culture Comments Nasal Adenovirus (PCR) Nasal B. parapertussis DNA (PCR) Nasal Coronavir 229E PCR Nasal Coronavir HKU1 PCR Nasal Coronavir NL63 PCR Nasal Coronavir OC43 PCR Nasal Enterovir/Rhinovir PCR Nasal Influenza B PCR Nasal Influenza A PCR Nasal Parainfluen 1 PCR Nasal Parainfluen 2 PCR Nasal Parainfluen 3 PCR Nasal Parainfluen 4 PCR Nasal RSV (PCR) Nasal Screen MRSA (PCR) (NEGATIVE) Nasal B.pertussis DNA PCR Nasal C.pneumoniae (PCR) Bladimir Human Metapneumo PCR Nasal M.pneumoniae (PCR) Nasal SARS-CoV-2 (PCR) Urine Opiates Screen (NEGATIVE) Ur Buprenorphine Scrn (NEGATIVE) Ur Oxycodone Screen (NEGATIVE) Urine Methadone Screen (NEGATIVE) Ur Barbiturates Screen (NEGATIVE) Ur Tricyclics Screen (NEGATIVE) Ur Phencyclidine Scrn (NEGATIVE) Ur Amphetamine Screen (NEGATIVE) U Methamphetamines Scrn (NEGATIVE) U Benzodiazepines Scrn (NEGATIVE) Urine Cocaine Screen (NEGATIVE) U Cannabinoids Screen (NEGATIVE) Ur Drug Screen Comment Ethyl Alcohol mg/dL Blood Type Blood Type Recheck Antibody Screen Crossmatch IS Only 04/27/23 04/27/23 04/27/23 Range/Units 04:42 04:42 01:40 WBC 4.7 L (4.8-10.8) x10^3/uL RBC 1.92 L (4.70-6.10) 10^6/uL Hgb 7.0 L* 5.9 L* (14.0-18.0) g/dL Hct 21.8 L 17.8 L* (42.0-52.0) % MCV 113.5 H (80.0-94.0) fL MCH 36.5 H (27.0-31.0) pg MCHC 32.1 (32.0-36.0) g/dL RDW 13.0 (12.0-15.0) % Plt Count 98 L (130-450) 10^3/uL MPV 10.4 (7.4-11.4) fL Neut # (Auto) 4.2 Lymph # (Auto) 0.3 L [place] # (Auto) 0.3 Eos # (Auto) 0.0 Baso # (Auto) 0.0 Absolute Nucleated RBC 0.00 Total Counted Band Neuts % (Manual) (0 - 10) % Abnorm Lymph % (Manual) % Nucleated RBC % 0.0 Neutrophils # (Manual) (1.5-6.6) 10^3/uL Lymphocytes # (Manual) (1.5-3.5) 10^3/uL Monocytes # (Manual) (0.0-1.0) 10^3/uL Eosinophils # (Manual) (0-0.7) 10^3/uL Basophils # (Manual) (0-0.1) 10^3/uL Differential Comment Manual Slide Review Indicated WBC Morphology (NORMAL) Platelet Estimate DECREASED (<130,000) (NORMAL) Platelet Morphology NORMAL APPEARANCE (NORMAL) RBC Morph Micro Appear (NORMAL) APTT (24.9-33.3) secs VBG pH (7.31-7.41) Ionized Calcium (1.15-1.33) mmol/L Sodium 140 (135-145) mmol/L Potassium 3.7 (3.5-4.5) mmol/L Chloride 113 H (101-111) mmol/L Carbon Dioxide 19 L (21-32) mmol/L Anion Gap 8.0 (6-13) BUN 11 (6-20) mg/dL Creatinine 0.5 L (0.6-1.3) mg/dL Estimated GFR (MDRD) 157 (>89) Glucose 109 H (74-104) mg/dL POC Whole Bld Glucose (70 - 100) mg/dL Lactic Acid (0.5-2.2) mmol/L Calcium 7.1 L (8.5-10.3) mg/dL Phosphorus 3.6 (2.5-5.0) mg/dL Magnesium 1.6 L (1.7-2.3) mg/dL Total Bilirubin 0.8 (0.2-1.0) mg/dL AST 172 H (10-42) IU/L ALT 55 (10-60) IU/L Alkaline Phosphatase 110 (42-121) IU/L Total Creatine Kinase 3020 H* (30-223) IU/L Troponin I High Sens (2.3-19.7) ng/L B-Natriuretic Peptide Total Protein 3.5 L (6.4-8.9) g/dL Albumin 1.8 L (3.2-5.5) g/dL Globulin 1.7 L (2.1-4.2) g/dL Albumin/Globulin Ratio 1.1 (1.0-2.2) Vitamin B12 (180-914) pg/mL Folate (5.90 - >24.8) ng/mL TSH (0.34-5.60) uIU/mL Urine Color Urine Clarity (CLEAR) Urine pH (5.0-7.5) PH Ur Specific [place] (1.002-1.030) Urine Protein (NEGATIVE) mg/dL Urine Glucose (UA) (NEGATIVE) mg/dL Urine Ketones (NEGATIVE) mg/dL Urine Occult Blood (NEGATIVE) Urine Nitrite (NEGATIVE) Urine Bilirubin (NEGATIVE) Urine Urobilinogen (NORMAL) E.U./dL Ur Leukocyte Esterase (NEGATIVE) Urine RBC (0-5) /HPF Urine WBC (0-3) /HPF Ur Squamous Epith Cells (<= Few) Urine Bacteria (None Seen) /HPF Urine Culture Comments Nasal Adenovirus (PCR) Nasal B. parapertussis DNA (PCR) Nasal Coronavir 229E PCR Nasal Coronavir HKU1 PCR Nasal Coronavir NL63 PCR Nasal Coronavir OC43 PCR Nasal Enterovir/Rhinovir PCR Nasal Influenza B PCR Nasal Influenza A PCR Nasal Parainfluen 1 PCR Nasal Parainfluen 2 PCR Nasal Parainfluen 3 PCR Nasal Parainfluen 4 PCR Nasal RSV (PCR) Nasal Screen MRSA (PCR) (NEGATIVE) Nasal B.pertussis DNA PCR Nasal C.pneumoniae (PCR) Bl[place]imir Human Metapneumo PCR Nasal M.pneumoniae (PCR) Nasal SARS-CoV-2 (PCR) Urine Opiates Screen (NEGATIVE) Ur Buprenorphine Scrn (NEGATIVE) Ur Oxycodone Screen (NEGATIVE) Urine Methadone Screen (NEGATIVE) Ur Barbiturates Screen (NEGATIVE) Ur Tricyclics Screen (NEGATIVE) Ur Phencyclidine Scrn (NEGATIVE) Ur Amphetamine Screen (NEGATIVE) U Methamphetamines Scrn (NEGATIVE) U Benzodiazepines Scrn (NEGATIVE) Urine Cocaine Screen (NEGATIVE) U Cannabinoids Screen (NEGATIVE) Ur Drug Screen Comment Ethyl Alcohol mg/dL Blood Type Blood Type Recheck Antibody Screen Crossmatch IS Only 04/26/23 04/26/23 04/26/23 Range/Units 23:34 21:04 20:45 WBC (4.8-10.8) x10^3/uL RBC (4.70-6.10) 10^6/uL Hgb (14.0-18.0) g/dL Hct (42.0-52.0) % MCV (80.0-94.0) fL MCH (27.0-31.0) pg MCHC (32.0-36.0) g/dL RDW (12.0-15.0) % Plt Count (130-450) 10^3/uL MPV (7.4-11.4) fL Neut # (Auto) Lymph # (Auto) [place] # (Auto) Eos # (Auto) Baso # (Auto) Absolute Nucleated RBC Total Counted Band Neuts % (Manual) (0 - 10) % Abnorm Lymph % (Manual) % Nucleated RBC % Neutrophils # (Manual) (1.5-6.6) 10^3/uL Lymphocytes # (Manual) (1.5-3.5) 10^3/uL Monocytes # (Manual) (0.0-1.0) 10^3/uL Eosinophils # (Manual) (0-0.7) 10^3/uL Basophils # (Manual) (0-0.1) 10^3/uL Differential Comment Manual Slide Review WBC Morphology (NORMAL) Platelet Estimate (NORMAL) Platelet Morphology (NORMAL) RBC Morph Micro Appear (NORMAL) APTT (24.9-33.3) secs VBG pH (7.31-7.41) Ionized Calcium (1.15-1.33) mmol/L Sodium (135-145) mmol/L Potassium (3.5-4.5) mmol/L Chloride (101-111) mmol/L Carbon Dioxide (21-32) mmol/L Anion Gap (6-13) BUN (6-20) mg/dL Creatinine (0.6-1.3) mg/dL Estimated GFR (MDRD) (>89) Glucose (74-104) mg/dL POC Whole Bld Glucose 103 H (70 - 100) mg/dL Lactic Acid 1.1 (0.5-2.2) mmol/L Calcium (8.5-10.3) mg/dL Phosphorus (2.5-5.0) mg/dL Magnesium (1.7-2.3) mg/dL Total Bilirubin (0.2-1.0) mg/dL AST (10-42) IU/L ALT (10-60) IU/L Alkaline Phosphatase (42-121) IU/L Total Creatine Kinase (30-223) IU/L Troponin I High Sens (2.3-19.7) ng/L B-Natriuretic Peptide Total Protein (6.4-8.9) g/dL Albumin (3.2-5.5) g/dL Globulin (2.1-4.2) g/dL Albumin/Globulin Ratio (1.0-2.2) Vitamin B12 (180-914) pg/mL Folate (5.90 - >24.8) ng/mL TSH (0.34-5.60) uIU/mL Urine Color Urine Clarity (CLEAR) Urine pH (5.0-7.5) PH Ur Specific [place] (1.002-1.030) Urine Protein (NEGATIVE) mg/dL Urine Glucose (UA) (NEGATIVE) mg/dL Urine Ketones (NEGATIVE) mg/dL Urine Occult Blood (NEGATIVE) Urine Nitrite (NEGATIVE) Urine Bilirubin (NEGATIVE) Urine Urobilinogen (NORMAL) E.U./dL Ur Leukocyte Esterase (NEGATIVE) Urine RBC (0-5) /HPF Urine WBC (0-3) /HPF Ur Squamous Epith Cells (<= Few) Urine Bacteria (None Seen) /HPF Urine Culture Comments Nasal Adenovirus (PCR) Nasal B. parapertussis DNA (PCR) Nasal Coronavir 229E PCR Nasal Coronavir HKU1 PCR Nasal Coronavir NL63 PCR Nasal Coronavir OC43 PCR Nasal Enterovir/Rhinovir PCR Nasal Influenza B PCR Nasal Influenza A PCR Nasal Parainfluen 1 PCR Nasal Parainfluen 2 PCR Nasal Parainfluen 3 PCR Nasal Parainfluen 4 PCR Nasal RSV (PCR) Nasal Screen MRSA (PCR) (NEGATIVE) Nasal B.pertussis DNA PCR Nasal C.pneumoniae (PCR) Bladimir Human Metapneumo PCR Nasal M.pneumoniae (PCR) Nasal SARS-CoV-2 (PCR) Urine Opiates Screen (NEGATIVE) Ur Buprenorphine Scrn (NEGATIVE) Ur Oxycodone Screen (NEGATIVE) Urine Methadone Screen (NEGATIVE) Ur Barbiturates Screen (NEGATIVE) Ur Tricyclics Screen (NEGATIVE) Ur Phencyclidine Scrn (NEGATIVE) Ur Amphetamine Screen (NEGATIVE) U Methamphetamines Scrn (NEGATIVE) U Benzodiazepines Scrn (NEGATIVE) Urine Cocaine Screen (NEGATIVE) U Cannabinoids Screen (NEGATIVE) Ur Drug Screen Comment Ethyl Alcohol mg/dL Blood Type Blood Type Recheck Antibody Screen Crossmatch IS Only 04/26/23 04/26/23 04/26/23 Range/Units 20:22 19:03 18:19 WBC (4.8-10.8) x10^3/uL RBC (4.70-6.10) 10^6/uL Hgb (14.0-18.0) g/dL Hct (42.0-52.0) % MCV (80.0-94.0) fL MCH (27.0-31.0) pg MCHC (32.0-36.0) g/dL RDW (12.0-15.0) % Plt Count (130-450) 10^3/uL MPV (7.4-11.4) fL Neut # (Auto) Lymph # (Auto) [place] # (Auto) Eos # (Auto) Baso # (Auto) Absolute Nucleated RBC Total Counted Band Neuts % (Manual) (0 - 10) % Abnorm Lymph % (Manual) % Nucleated RBC % Neutrophils # (Manual) (1.5-6.6) 10^3/uL Lymphocytes # (Manual) (1.5-3.5) 10^3/uL Monocytes # (Manual) (0.0-1.0) 10^3/uL Eosinophils # (Manual) (0-0.7) 10^3/uL Basophils # (Manual) (0-0.1) 10^3/uL Differential Comment Manual Slide Review WBC Morphology (NORMAL) Platelet Estimate (NORMAL) Platelet Morphology (NORMAL) RBC Morph Micro Appear (NORMAL) APTT (24.9-33.3) secs VBG pH (7.31-7.41) Ionized Calcium (1.15-1.33) mmol/L Sodium (135-145) mmol/L Potassium (3.5-4.5) mmol/L Chloride (101-111) mmol/L Carbon Dioxide (21-32) mmol/L Anion Gap (6-13) BUN (6-20) mg/dL Creatinine (0.6-1.3) mg/dL Estimated GFR (MDRD) (>89) Glucose (74-104) mg/dL POC Whole Bld Glucose (70 - 100) mg/dL Lactic Acid (0.5-2.2) mmol/L Calcium (8.5-10.3) mg/dL Phosphorus (2.5-5.0) mg/dL Magnesium (1.7-2.3) mg/dL Total Bilirubin (0.2-1.0) mg/dL AST (10-42) IU/L ALT (10-60) IU/L Alkaline Phosphatase (42-121) IU/L Total Creatine Kinase (30-223) IU/L Troponin I High Sens 27.0 H* (2.3-19.7) ng/L B-Natriuretic Peptide Total Protein (6.4-8.9) g/dL Albumin (3.2-5.5) g/dL Globulin (2.1-4.2) g/dL Albumin/Globulin Ratio (1.0-2.2) Vitamin B12 (180-914) pg/mL Folate (5.90 - >24.8) ng/mL TSH (0.34-5.60) uIU/mL Urine Color Urine Clarity (CLEAR) Urine pH (5.0-7.5) PH Ur Specific [place] (1.002-1.030) Urine Protein (NEGATIVE) mg/dL Urine Glucose (UA) (NEGATIVE) mg/dL Urine Ketones (NEGATIVE) mg/dL Urine Occult Blood (NEGATIVE) Urine Nitrite (NEGATIVE) Urine Bilirubin (NEGATIVE) Urine Urobilinogen (NORMAL) E.U./dL Ur Leukocyte Esterase (NEGATIVE) Urine RBC (0-5) /HPF Urine WBC (0-3) /HPF Ur Squamous Epith Cells (<= Few) Urine Bacteria (None Seen) /HPF Urine Culture Comments Nasal Adenovirus (PCR) Nasal B. parapertussis DNA (PCR) Nasal Coronavir 229E PCR Nasal Coronavir HKU1 PCR Nasal Coronavir NL63 PCR Nasal Coronavir OC43 PCR Nasal Enterovir/Rhinovir PCR Nasal Influenza B PCR Nasal Influenza A PCR Nasal Parainfluen 1 PCR Nasal Parainfluen 2 PCR Nasal Parainfluen 3 PCR Nasal Parainfluen 4 PCR Nasal RSV (PCR) Nasal Screen MRSA (PCR) NEGATIVE (NEGATIVE) Nasal B.pertussis DNA PCR Nasal C.pneumoniae (PCR) Bladimir Human Metapneumo PCR Nasal M.pneumoniae (PCR) Nasal SARS-CoV-2 (PCR) Urine Opiates Screen (NEGATIVE) Ur Buprenorphine Scrn (NEGATIVE) Ur Oxycodone Screen (NEGATIVE) Urine Methadone Screen (NEGATIVE) Ur Barbiturates Screen (NEGATIVE) Ur Tricyclics Screen (NEGATIVE) Ur Phencyclidine Scrn (NEGATIVE) Ur Amphetamine Screen (NEGATIVE) U Methamphetamines Scrn (NEGATIVE) U Benzodiazepines Scrn (NEGATIVE) Urine Cocaine Screen (NEGATIVE) U Cannabinoids Screen (NEGATIVE) Ur Drug Screen Comment Ethyl Alcohol mg/dL Blood Type Blood Type Recheck Antibody Screen Crossmatch IS Only 04/26/23 04/26/23 04/26/23 Range/Units 17:34 17:34 14:35 WBC (4.8-10.8) x10^3/uL RBC (4.70-6.10) 10^6/uL Hgb (14.0-18.0) g/dL Hct (42.0-52.0) % MCV (80.0-94.0) fL MCH (27.0-31.0) pg MCHC (32.0-36.0) g/dL RDW (12.0-15.0) % Plt Count (130-450) 10^3/uL MPV (7.4-11.4) fL Neut # (Auto) Lymph # (Auto) [place] # (Auto) Eos # (Auto) Baso # (Auto) Absolute Nucleated RBC Total Counted Band Neuts % (Manual) (0 - 10) % Abnorm Lymph % (Manual) % Nucleated RBC % Neutrophils # (Manual) (1.5-6.6) 10^3/uL Lymphocytes # (Manual) (1.5-3.5) 10^3/uL Monocytes # (Manual) (0.0-1.0) 10^3/uL Eosinophils # (Manual) (0-0.7) 10^3/uL Basophils # (Manual) (0-0.1) 10^3/uL Differential Comment Manual Slide Review WBC Morphology (NORMAL) Platelet Estimate (NORMAL) Platelet Morphology (NORMAL) RBC Morph Micro Appear (NORMAL) APTT (24.9-33.3) secs VBG pH (7.31-7.41) Ionized Calcium (1.15-1.33) mmol/L Sodium 139 (135-145) mmol/L Potassium 2.7 L (3.5-4.5) mmol/L Chloride 107 (101-111) mmol/L Carbon Dioxide 22 (21-32) mmol/L Anion Gap 10.0 (6-13) BUN 9 (6-20) mg/dL Creatinine 0.4 L (0.6-1.3) mg/dL Estimated GFR (MDRD) 203 (>89) Glucose 123 H (74-104) mg/dL POC Whole Bld Glucose (70 - 100) mg/dL Lactic Acid 3.3 H* 3.0 H* (0.5-2.2) mmol/L Calcium 7.1 L (8.5-10.3) mg/dL Phosphorus 2.7 (2.5-5.0) mg/dL Magnesium 1.9 (1.7-2.3) mg/dL Total Bilirubin (0.2-1.0) mg/dL AST (10-42) IU/L ALT (10-60) IU/L Alkaline Phosphatase (42-121) IU/L Total Creatine Kinase (30-223) IU/L Troponin I High Sens (2.3-19.7) ng/L B-Natriuretic Peptide Total Protein (6.4-8.9) g/dL Albumin (3.2-5.5) g/dL Globulin (2.1-4.2) g/dL Albumin/Globulin Ratio (1.0-2.2) Vitamin B12 (180-914) pg/mL Folate (5.90 - >24.8) ng/mL TSH (0.34-5.60) uIU/mL Urine Color Urine Clarity (CLEAR) Urine pH (5.0-7.5) PH Ur Specific Wells (1.002-1.030) Urine Protein (NEGATIVE) mg/dL Urine Glucose (UA) (NEGATIVE) mg/dL Urine Ketones (NEGATIVE) mg/dL Urine Occult Blood (NEGATIVE) Urine Nitrite (NEGATIVE) Urine Bilirubin (NEGATIVE) Urine Urobilinogen (NORMAL) E.U./dL Ur Leukocyte Esterase (NEGATIVE) Urine RBC (0-5) /HPF Urine WBC (0-3) /HPF Ur Squamous Epith Cells (<= Few) Urine Bacteria (None Seen) /HPF Urine Culture Comments Nasal Adenovirus (PCR) Nasal B. parapertussis DNA (PCR) Nasal Coronavir 229E PCR Nasal Coronavir HKU1 PCR Nasal Coronavir NL63 PCR Nasal Coronavir OC43 PCR Nasal Enterovir/Rhinovir PCR Nasal Influenza B PCR Nasal Influenza A PCR Nasal Parainfluen 1 PCR Nasal Parainfluen 2 PCR Nasal Parainfluen 3 PCR Nasal Parainfluen 4 PCR Nasal RSV (PCR) Nasal Screen MRSA (PCR) (NEGATIVE) Nasal B.pertussis DNA PCR Nasal C.pneumoniae (PCR) Bladimir Human Metapneumo PCR Nasal M.pneumoniae (PCR) Nasal SARS-CoV-2 (PCR) Urine Opiates Screen (NEGATIVE) Ur Buprenorphine Scrn (NEGATIVE) Ur Oxycodone Screen (NEGATIVE) Urine Methadone Screen (NEGATIVE) Ur Barbiturates Screen (NEGATIVE) Ur Tricyclics Screen (NEGATIVE) Ur Phencyclidine Scrn (NEGATIVE) Ur Amphetamine Screen (NEGATIVE) U Methamphetamines Scrn (NEGATIVE) U Benzodiazepines Scrn (NEGATIVE) Urine Cocaine Screen (NEGATIVE) U Cannabinoids Screen (NEGATIVE) Ur Drug Screen Comment Ethyl Alcohol mg/dL Blood Type Blood Type Recheck Antibody Screen Crossmatch IS Only 04/26/23 04/26/23 04/26/23 Range/Units 13:45 12:24 11:53 WBC (4.8-10.8) x10^3/uL RBC (4.70-6.10) 10^6/uL Hgb (14.0-18.0) g/dL Hct (42.0-52.0) % MCV (80.0-94.0) fL MCH (27.0-31.0) pg MCHC (32.0-36.0) g/dL RDW (12.0-15.0) % Plt Count (130-450) 10^3/uL MPV (7.4-11.4) fL Neut # (Auto) Lymph # (Auto) [place] # (Auto) Eos # (Auto) Baso # (Auto) Absolute Nucleated RBC Total Counted Band Neuts % (Manual) (0 - 10) % Abnorm Lymph % (Manual) % Nucleated RBC % Neutrophils # (Manual) (1.5-6.6) 10^3/uL Lymphocytes # (Manual) (1.5-3.5) 10^3/uL Monocytes # (Manual) (0.0-1.0) 10^3/uL Eosinophils # (Manual) (0-0.7) 10^3/uL Basophils # (Manual) (0-0.1) 10^3/uL Differential Comment Manual Slide Review WBC Morphology (NORMAL) Platelet Estimate (NORMAL) Platelet Morphology (NORMAL) RBC Morph Micro Appear (NORMAL) APTT (24.9-33.3) secs VBG pH (7.31-7.41) Ionized Calcium (1.15-1.33) mmol/L Sodium (135-145) mmol/L Potassium (3.5-4.5) mmol/L Chloride (101-111) mmol/L Carbon Dioxide (21-32) mmol/L Anion Gap (6-13) BUN (6-20) mg/dL Creatinine (0.6-1.3) mg/dL Estimated GFR (MDRD) (>89) Glucose (74-104) mg/dL POC Whole Bld Glucose (70 - 100) mg/dL Lactic Acid (0.5-2.2) mmol/L Calcium (8.5-10.3) mg/dL Phosphorus (2.5-5.0) mg/dL Magnesium 1.6 L (1.7-2.3) mg/dL Total Bilirubin (0.2-1.0) mg/dL AST (10-42) IU/L ALT (10-60) IU/L Alkaline Phosphatase (42-121) IU/L Total Creatine Kinase (30-223) IU/L Troponin I High Sens (2.3-19.7) ng/L B-Natriuretic Peptide Total Protein (6.4-8.9) g/dL Albumin (3.2-5.5) g/dL Globulin (2.1-4.2) g/dL Albumin/Globulin Ratio (1.0-2.2) Vitamin B12 (180-914) pg/mL Folate (5.90 - >24.8) ng/mL TSH (0.34-5.60) uIU/mL Urine Color YELLOW Urine Clarity CLEAR (CLEAR) Urine pH 7.0 (5.0-7.5) PH Ur Specific Wells <=1.005 (1.002-1.030) Urine Protein NEGATIVE (NEGATIVE) mg/dL Urine Glucose (UA) NEGATIVE (NEGATIVE) mg/dL Urine Ketones NEGATIVE (NEGATIVE) mg/dL Urine Occult Blood TRACE-INTA (NEGATIVE) Urine Nitrite NEGATIVE (NEGATIVE) Urine Bilirubin NEGATIVE (NEGATIVE) Urine Urobilinogen 1 (NORMAL) (NORMAL) E.U./dL Ur Leukocyte Esterase NEGATIVE (NEGATIVE) Urine RBC 0-5 (0-5) /HPF Urine WBC 0-3 (0-3) /HPF Ur Squamous Epith Cells FEW Squamous (<= Few) Urine Bacteria Rare (None Seen) /HPF Urine Culture Comments NOT INDICATED Nasal Adenovirus (PCR) NOT DETECTED Nasal B. parapertussis DNA (PCR) NOT DETECTED Nasal Coronavir 229E PCR NOT DETECTED Nasal Coronavir HKU1 PCR NOT DETECTED Nasal Coronavir NL63 PCR NOT DETECTED Nasal Coronavir OC43 PCR NOT DETECTED Nasal Enterovir/Rhinovir PCR NOT DETECTED Nasal Influenza B PCR NOT DETECTED Nasal Influenza A PCR NOT DETECTED Nasal Parainfluen 1 PCR NOT DETECTED Nasal Parainfluen 2 PCR NOT DETECTED Nasal Parainfluen 3 PCR NOT DETECTED Nasal Parainfluen 4 PCR NOT DETECTED Nasal RSV (PCR) NOT DETECTED Nasal Screen MRSA (PCR) (NEGATIVE) Nasal B.pertussis DNA PCR NOT DETECTED Nasal C.pneumoniae (PCR) NOT DETECTED Bladimir Human Metapneumo PCR NOT DETECTED Nasal M.pneumoniae (PCR) NOT DETECTED Nasal SARS-CoV-2 (PCR) NOT DETECTED Urine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
--- NOTE | 2023-04-27 12:53 | PHARMACY PROGRESS NOTE ---
- Best Possible Medication History Admit Date and Time: 04/26/23 180 Processed by: Pharmacy Medication History completed: Yes Patient Interview: Pt unable to participate Secondary Source(s): Other family member (Daughter), Insurance records Patient's daughter interviewed for med list updates by [employer]. As the person ultimately responsible for medication therapy, providers are able to order a medication from an existing home medication list in [facility] via the "Reconcile Routine" prior to Confirmation of that medication by production support specialist. Such practice is discouraged except when the physician, in their clinical judgment, deems that a medical need exists for a medication without regard to previous use.
[2023-04-27] MEDS: VANCOMYCIN INJ 1 GM, VANCOMYCIN INJ 250 MG in SODIUM CHLORIDE 0.9% 250 ML IV SCH (13:10)
[2023-04-27] MEDS ORDERED: ALBUMIN 25% 12.5 GM/50 ML VIAL IV ONE (15:53)
[2023-04-27] MEDS: ALBUMIN 25% 12.5 GM/50 ML VIAL IV STA (16:05)
[2023-04-27] MEDS ORDERED: TPN (CLINIMIX E 5/15) 2,000 ML with MULTIVITAMIN 10 ML, TRACE ELEMENTS 1 ML IV SCH (19:00)
[2023-04-27] MEDS ORDERED: FAT EMULSION 20% 250 ML IV SCH (19:00)
[2023-04-28] MEDS: SODIUM CHLORIDE FLUSH 0.9% 10 ML SYRINGE IVP PRN (04:52)
[2023-04-28 06:31] LABS: BASOPHILS % (AUTO) 0.3 %; EOSINOPHILS % (AUTO) 0.2 %; HCT - HEMATOCRIT 27.2 % (42.0-52.0); HGB - HEMOGLOBIN 9.2 g/dL (14.0-18.0); LYMPHOCYTES # (AUTO) 0.7 10^3/uL (1.5-3.5); LYMPHOCYTES % (AUTO) 12.6 %; MEAN CORPUSCULAR HEMOGLOBIN 33.8 pg (27.0-31.0); MEAN CORPUSCULAR HGB CONC 33.8 g/dL (32.0-36.0); MEAN PLATELET VOLUME 9.6 fL (7.4-11.4); MONOCYTES # (AUTO) 0.5 10^3/uL (0.0-1.0); MONOCYTES % (AUTO) 9.2 %; NEUTROPHILS # (AUTO) 4.5 10^3/uL (1.5-6.6); NEUTROPHILS % (AUTO) 77.2 %; PLT - PLATELET COUNT 105 10^3/uL (130-450); RED BLOOD COUNT 2.72 10^6/uL (4.70-6.10); RED CELL DISTRIBUTION WIDTH 20.2 % (12.0-15.0); WHITE BLOOD COUNT 5.9 x10^3/uL (4.8-10.8)
[2023-04-28 06:36] LABS: SLIDE REVIEW? Indicated
[2023-04-28 06:57] LABS: CALCIUM, IONIZED 1.19 mmol/L (1.15-1.33); VBG PH 7.38 (7.31-7.41)
[2023-04-28 07:01] LABS: PLATELET ESTIMATE, MANUAL DECREASED (<130,000) (NORMAL)
[2023-04-28 07:10] LABS: ALBUMIN/GLOBULIN RATIO 1.1 (1.0-2.2); BILIRUBIN,TOTAL 0.6 mg/dL (0.2-1.0); CALCIUM 7.5 mg/dL (8.5-10.3); CREATININE 0.9 mg/dL (0.6-1.3); POTASSIUM 3.7 mmol/L (3.5-4.5); TOTAL PROTEIN 3.9 g/dL (6.4-8.9)
[2023-04-28] MEDS ORDERED: POTASSIUM CHLOR 20 MEQ/100 ML 20 MEQ/100 ML BAG IV ONE (07:42)
[2023-04-28] MEDS: POTASSIUM CHLOR 20 MEQ/100 ML 20 MEQ/100 ML BAG IV ONE (07:48)
[2023-04-28] MEDS ORDERED: SODIUM CHLORIDE 0.9% 250 ML IV ONE (12:48)
[2023-04-28] MEDS ORDERED: VANCOMYCIN 1 GM VIAL ONE (12:48)
--- NOTE | 2023-04-28 14:52 | PROVIDER PROGRESS NOTE ---
Assessment/Plan - Problem List (1) Shock circulatory Assessment/Plan: (1) Shock circulatory Impression: (2) Fall at home (3) Rhabdomyolysis (4) C3 cervical fracture (5) C4 cervical fracture (6) Pulmonary embolism (7) Colitis (8) Alcoholism (9) Pancytopenia (10) Hypothermia Comments/plan: Palliative care has met with family to include 3 daughters, Luis A who is the DPOA and after some discussion the decision has been made to focus on comfort. I discussed goals of care briefly with the family and they confirmed that they wish to focus on comfort. Patient is not competent to make his own decisions at this time and goals of care were deferred to family. Comfort care orders have been written. - Current Meds Current Meds: Current Medications Generic Name Dose Route Start Last Admin Trade Name Freq PRN Reason Stop Dose Admin Chlorhexidine Gluconate 15 ml 04/26/23 21:00 04/28/23 09:01 Chlorhexidine Gluconate 15 Ml Udc PO 15 ml BID SHAHID Administration Famotidine 20 mg 04/26/23 21:00 04/28/23 08:51 Famotidine 20 Mg/2 Ml Vial IVP 20 mg BID SHAHID Administration Hydromorphone HCl 0.5 mg 04/26/23 18:06 04/28/23 13:04 Hydromorphone 0.5 Mg/0.5 Ml Syringe IVP 0.5 mg Q2H PRN Administration Pain 8 to 10 Multivitamins 10 ml/ Thiamine 1,011.2 mls @ 100 mls/hr 04/26/23 18:12 04/28/23 09:30 HCl 100 mg/ Folic Acid 1 mg/ IV 04/28/23 18:59 100 mls/hr Sodium Chloride DAILY SHAHID Administration Cefepime HCl 1 gm/ Sodium 100 mls @ 200 mls/hr 04/26/23 22:00 04/28/23 10:15 Chloride IV Infused Q12H SHAHID Infusion Metronidazole 500 mg in 100 mls @ 100 mls/hr 04/26/23 21:00 04/28/23 12:51 Flagyl 500 Mg/100 Ml IV 100 mls/hr Q8H SHAHID Administration Acetaminophen 1,000 mg in 100 mls @ 400 mls/hr 04/26/23 18:56 04/26/23 21:18 Acetaminophen IV Infused Q6HR PRN Infusion Pain or Fever > 38C (100.4F) Vancomycin HCl 1 gm/ 250 mls @ 167 mls/hr 04/27/23 13:00 04/28/23 13:55 Vancomycin HCl 250 mg/ Sodium IV 167 mls/hr Chloride Q24H SHAHID Administration NOREPINEPHRINE/0.9 % NS 8 mg in 250 mls @ 15 mls/hr 04/27/23 09:00 04/28/23 08:45 Levophed 8 Mg/250-0.9% Nacl IV 0 mcg/min .[id number] SHAHID 0 mls/hr Titration Protocol 8 MCG/MIN Sodium Chloride 10 ml 04/27/23 01:00 04/28/23 09:01 Sodium Chloride Flush 0.9% 10 Ml Syringe IVP 10 ml 0100,0900,1700 SHAHID Administration Sodium Chloride 10 ml 04/26/23 18:06 04/28/23 04:52 Sodium Chloride Flush 0.9% 10 Ml Syringe IVP 30 ml PRN PRN Administration NEEDED PER PROVIDER ORDERS - Lab Result Fish Bone Diagrams: 04/28/23 06:20 04/28/23 06:20 Subjective - Subjective Patient Reports: Other (Not able to answer any question or repond to questions today.) Objective Vital Signs: Vital Signs - 24 hr 04/27/23 04/27/23 04/27/23 15:00 16:00 17:00 Temperature 37.6 C 37.7 C 37.7 C Heart Rate [ 68 69 74 Monitoring electrodes] Respiratory 12 12 13 Rate Blood Pressure 112/52 L 114/51 L 108/64 [Right Brachial artery] O2 Saturation 97 97 97 04/27/23 04/27/23 04/27/23 18:00 19:00 20:00 Temperature 37.7 C 37.4 C Heart Rate [ 74 75 76 Monitoring electrodes] Respiratory 12 14 15 Rate Blood Pressure 108/69 127/64 134/64 H [Right Brachial artery] O2 Saturation 95 97 97 04/27/23 04/27/23 04/27/23 21:00 22:00 23:00 Temperature 37.4 C 37.3 C 37.2 C Heart Rate [ 76 75 75 Monitoring electrodes] Respiratory 16 13 14 Rate Blood Pressure 134/64 H 134/77 H 130/74 [Right Brachial artery] O2 Saturation 97 97 96 04/28/23 04/28/23 04/28/23 00:00 01:00 02:00 Temperature 37.2 C 37.2 C Heart Rate [ 73 75 73 Monitoring electrodes] Respiratory 13 16 16 Rate Blood Pressure 130/68 134/71 H 115/88 H [Right Brachial artery] O2 Saturation 95 96 96 04/28/23 04/28/23 04/28/23 03:00 04:00 05:00 Temperature 37.0 C 36.9 C Heart Rate [ 74 74 73 Monitoring electrodes] Respiratory 15 17 17 Rate Blood Pressure 125/63 118/82 H 123/68 [Right Brachial artery] O2 Saturation 96 96 95 04/28/23 04/28/23 04/28/23 06:00 07:00 08:00 Temperature 36.5 C 36.4 C L Heart Rate [ 72 71 65 Monitoring electrodes] Respiratory 17 15 14 Rate Blood Pressure 106/67 121/78 116/65 [Right Brachial artery] O2 Saturation 96 96 95 04/28/23 04/28/23 04/28/23 09:00 10:00 11:00 Temperature 36.3 C L 36.2 C L Heart Rate [ 66 65 64 Monitoring electrodes] Respiratory 23 14 16 Rate Blood Pressure 116/65 114/52 L 102/57 L [Right Brachial artery] O2 Saturation 96 93 93 04/28/23 04/28/23 04/28/23 12:00 13:00 14:00 Temperature Heart Rate [ 63 67 62 Monitoring electrodes] Respiratory 15 20 13 Rate Blood Pressure 95/56 L 98/59 L 92/54 L [Right Brachial artery] O2 Saturation 94 94 92 Oxygen O2 Source Room air I&O (Last 24 Hrs): Intake and Output Totals x24h 04/26/23 04/27/23 04/28/23 23:59 23:59 23:59 Intake Total 4101 6974.714 383.000 Output Total 665 386 268 Balance 3436 6588.714 115.000 General: Alert, No acute distress HEENT: PERRLA Neck: Supple, No JVD Lymphatic: no adenopathy Neuro: Alert Cardiovascular: Other (Positive S1, S2, No extra heart sounds) Respiratory: No respiratory distress, Breath sounds nml Abdomen: Normal bowel sounds, No tenderness Extremities: No cyanosis, No edema Skin: No rashes - Results Results: Laboratory Results WBC 5.9 x10^3/uL (4.8-10.8) 04/28/23 06:20 RBC 2.72 10^6/uL (4.70-6.10) L 04/28/23 06:20 Hgb 9.2 g/dL (14.0-18.0) L 04/28/23 06:20 Hct 27.2 % (42.0-52.0) L 04/28/23 06:20 MCV 100.0 fL (80.0-94.0) H 04/28/23 06:20 MCH 33.8 pg (27.0-31.0) H 04/28/23 06:20 MCHC 33.8 g/dL (32.0-36.0) 04/28/23 06:20 RDW 20.2 % (12.0-15.0) H 04/28/23 06:20 Plt Count 105 10^3/uL (130-450) L 04/28/23 06:20 MPV 9.6 fL (7.4-11.4) 04/28/23 06:20 Neut # (Auto) 4.5 10^3/uL (1.5-6.6) 04/28/23 06:20 Lymph # (Auto) 0.7 10^3/uL (1.5-3.5) L 04/28/23 06:20 Mcleod # (Auto) 0.5 10^3/uL (0.0-1.0) 04/28/23 06:20 Eos # (Auto) 0.0 10^3/uL (0.0-0.7) 04/28/23 06:20 Baso # (Auto) 0.0 10^3/uL (0.0-0.1) 04/28/23 06:20 Absolute Nucleated RBC 0.00 x10^3/uL 04/28/23 06:20 Total Counted 100 04/26/23 11:53 Band Neuts % (Manual) 9 % (0-10) 04/26/23 11:53 Abnorm Lymph % (Manual) 0 % 04/26/23 11:53 Nucleated RBC % 0.0 /100WBC 04/28/23 06:20 Neutrophils # (Manual) 1.4 10^3/uL (1.5-6.6) L 04/26/23 11:53 Lymphocytes # (Manual) 0.3 10^3/uL (1.5-3.5) L 04/26/23 11:53 Monocytes # (Manual) 0.1 10^3/uL (0.0-1.0) 04/26/23 11:53 Eosinophils # (Manual) 0.0 10^3/uL (0-0.7) 04/26/23 11:53 Basophils # (Manual) 0.0 10^3/uL (0-0.1) 04/26/23 11:53 Differential Comment MANUAL DIFFERENTIAL 04/26/23 11:53 Manual Slide Review Indicated 04/28/23 06:20 WBC Morphology NORMAL APPEARANCE (NORMAL) 04/26/23 11:53 Platelet Estimate DECREASED (<130,000) (NORMAL) 04/28/23 06:20 Platelet Morphology NORMAL APPEARANCE (NORMAL) 04/27/23 04:42 RBC Morph Micro Appear 1+ ANISOCYTOSIS (NORMAL) 1+ MACROCYTOSIS (NORMAL) 1+ HYPOCHROMASIA (NORMAL) 1+ OVALOCYTES (NORMAL) 04/28/23 06:20 RBC Morph Micro Appear 1+ ANISOCYTOSIS (NORMAL) 1+ MACROCYTOSIS (NORMAL) 1+ HYPOCHROMASIA (NORMAL) 1+ OVALOCYTES (NORMAL) 04/28/23 06:20 RBC Morph Micro Appear 1+ ANISOCYTOSIS (NORMAL) 1+ MACROCYTOSIS (NORMAL) 1+ HYPOCHROMASIA (NORMAL) 1+ OVALOCYTES (NORMAL) 04/28/23 06:20 RBC Morph Micro Appear 1+ ANISOCYTOSIS (NORMAL) 1+ MACROCYTOSIS (NORMAL) 1+ HYPOCHROMASIA (NORMAL) 1+ OVALOCYTES (NORMAL) 04/28/23 06:20 PT 13.0 secs (9.9-12.6) H 04/26/23 11:53 INR 1.2 (0.8-1.2) 04/26/23 11:53 APTT secs (24.9-33.3) 04/26/23 21:04 VBG pH 7.380 (7.31-7.41) 04/28/23 06:20 VBG pCO2 34.8 mmHg (41-51) L 04/26/23 11:53 VBG pO2 120.9 mmHg (25-47) H 04/26/23 11:53 VBG HCO3 21.9 mmol/L (23-28) L 04/26/23 11:53 VBG Total CO2 22.9 mmol/L (24-29) L 04/26/23 11:53 VBG O2 Saturation 97.6 % (60-80) H 04/26/23 11:53 VBG Base Excess -2.3 mmol/L (-2 - +2) L 04/26/23 11:53 Ionized Calcium 1.19 mmol/L (1.15-1.33) 04/28/23 06:20 Sodium 142 mmol/L (135-145) 04/28/23 06:20 Potassium 3.7 mmol/L (3.5-4.5) 04/28/23 06:20 Chloride 116 mmol/L (101-111) H 04/28/23 06:20 Carbon Dioxide 15 mmol/L (21-32) L 04/28/23 06:20 Anion Gap 11.0 (6-13) 04/28/23 06:20 BUN 18 mg/dL (6-20) 04/28/23 06:20 Creatinine 0.9 mg/dL (0.6-1.3) 04/28/23 06:20 Estimated GFR (MDRD) 80 (>89) L 04/28/23 06:20 Glucose 142 mg/dL (74-104) H 04/28/23 06:20 POC Whole Bld Glucose 133 mg/dL (70 - 100) H 04/27/23 22:52 Lactic Acid 1.1 mmol/L (0.5-2.2) 04/26/23 20:45 Calcium 7.5 mg/dL (8.5-10.3) L 04/28/23 06:20 Ionized Calcium YES 04/27/23 10:40 Phosphorus 3.6 mg/dL (2.5-5.0) 04/28/23 06:20 Magnesium 2.0 mg/dL (1.7-2.3) 04/28/23 06:20 Total Bilirubin 0.6 mg/dL (0.2-1.0) 04/28/23 06:20 AST 129 IU/L (10-42) H 04/28/23 06:20 ALT 52 IU/L (10-60) 04/28/23 06:20 Alkaline Phosphatase 114 IU/L (42-121) 04/28/23 06:20 Total Creatine Kinase 1008 IU/L (30-223) H* 04/28/23 06:20 Troponin I High Sens 38.6 ng/L (2.3-19.7) H* 04/27/23 04:42 B-Natriuretic Peptide 587 pg/mL (5-100) H 04/28/23 06:20 Total Protein 3.9 g/dL (6.4-8.9) L 04/28/23 06:20 Albumin 2.0 g/dL (3.2-5.5) L 04/28/23 06:20 Globulin 1.9 g/dL (2.1-4.2) L 04/28/23 06:20 Albumin/Globulin Ratio 1.1 (1.0-2.2) 04/28/23 06:20 Vitamin B12 641 pg/mL (180-914) 04/27/23 04:42 Folate 16.5 ng/mL (5.90 - >24.8) 04/27/23 04:42 TSH 1.13 uIU/mL (0.34-5.60) 04/26/23 11:53 Urine Color YELLOW 04/26/23 12:24 Urine Clarity CLEAR (CLEAR) 04/26/23 12:24 Urine pH 7.0 PH (5.0-7.5) 04/26/23 12:24 Ur Specific [place] <=1.005 (1.002-1.030) 04/26/23 12:24 Urine Protein NEGATIVE mg/dL (NEGATIVE) 04/26/23 12:24 Urine Glucose (UA) NEGATIVE mg/dL (NEGATIVE) 04/26/23 12:24 Urine Ketones NEGATIVE mg/dL (NEGATIVE) 04/26/23 12:24 Urine Occult Blood TRACE-INTA (NEGATIVE) 04/26/23 12:24 Urine Nitrite NEGATIVE (NEGATIVE) 04/26/23 12:24 Urine Bilirubin NEGATIVE (NEGATIVE) 04/26/23 12:24 Urine Urobilinogen 1 (NORMAL) E.U./dL (NORMAL) 04/26/23 12:24 Ur Leukocyte Esterase NEGATIVE (NEGATIVE) 04/26/23 12:24 Urine RBC 0-5 /HPF (0-5) 04/26/23 12:24 Urine WBC 0-3 /HPF (0-3) 04/26/23 12:24 Ur Squamous Epith Cells FEW Squamous (<= Few) 04/26/23 12:24 Urine Bacteria Rare /HPF (None Seen) 04/26/23 12:24 Urine Culture Comments NOT INDICATED 04/26/23 12:24 Nasal Adenovirus (PCR) NOT DETECTED 04/26/23 13:45 Nasal B. parapertussis DNA (PCR) NOT DETECTED 04/26/23 13:45 Nasal Coronavir 229E PCR NOT DETECTED 04/26/23 13:45 Nasal Coronavir HKU1 PCR NOT DETECTED 04/26/23 13:45 Nasal Coronavir NL63 PCR NOT DETECTED 04/26/23 13:45 Nasal Coronavir OC43 PCR NOT DETECTED 04/26/23 13:45 Nasal Enterovir/Rhinovir PCR NOT DETECTED 04/26/23 13:45 Nasal Influenza B PCR NOT DETECTED 04/26/23 13:45 Nasal Influenza A PCR NOT DETECTED 04/26/23 13:45 Nasal Parainfluen 1 PCR NOT DETECTED 04/26/23 13:45 Nasal Parainfluen 2 PCR NOT DETECTED 04/26/23 13:45 Nasal Parainfluen 3 PCR NOT DETECTED 04/26/23 13:45 Nasal Parainfluen 4 PCR NOT DETECTED 04/26/23 13:45 Nasal RSV (PCR) NOT DETECTED 04/26/23 13:45 Nasal Screen MRSA (PCR) NEGATIVE (NEGATIVE) 04/26/23 19:03 Nasal B.pertussis DNA PCR NOT DETECTED 04/26/23 13:45 Nasal C.pneumoniae (PCR) NOT DETECTED 04/26/23 13:45 Bladimir Human Metapneumo PCR NOT DETECTED 04/26/23 13:45 Nasal M.pneumoniae (PCR) NOT DETECTED 04/26/23 13:45 Nasal SARS-CoV-2 (PCR) NOT DETECTED 04/26/23 13:45 Urine Opiates Screen NEGATIVE (NEGATIVE) 04/26/23 12:24 Ur Buprenorphine Scrn NEGATIVE (NEGATIVE) 04/26/23 12:24 Ur Oxycodone Screen POSITIVE (NEGATIVE) H 04/26/23 12:24 Urine Methadone Screen NEGATIVE (NEGATIVE) 04/26/23 12:24 Ur Barbiturates Screen NEGATIVE (NEGATIVE) 04/26/23 12:24 Ur Tricyclics Screen NEGATIVE (NEGATIVE) 04/26/23 12:24 Ur Phencyclidine Scrn NEGATIVE (NEGATIVE) 04/26/23 12:24 Ur Amphetamine Screen NEGATIVE (NEGATIVE) 04/26/23 12:24 U Methamphetamines Scrn NEGATIVE (NEGATIVE) 04/26/23 12:24 U Benzodiazepines Scrn NEGATIVE (NEGATIVE) 04/26/23 12:24 Urine Cocaine Screen NEGATIVE (NEGATIVE) 04/26/23 12:24 U Cannabinoids Screen NEGATIVE (NEGATIVE) 04/26/23 12:24 Ur Drug Screen Comment CUTOFF CONC BELOW: 04/26/23 12:24 Ethyl Alcohol 83.7 mg/dL 04/26/23 11:53 Blood Type AB POSITIVE 04/26/23 11:53 Blood Type Recheck AB POSITIVE 04/26/23 11:35 Antibody Screen NEGATIVE 04/26/23 11:53 Crossmatch IS Only See Detail 04/26/23 11:53 ABX Reporting Has patient been on IV antibiotics over the past 48 hours?: Yes Current Medications - Current Medications Current Medications: Active Medications Albuterol/Ipratropium (Ipratropium/Albuterol 3 Ml Neb) 3 ml INH Q4HR PRN PRN Reason: Wheezing Chlorhexidine Gluconate (Chlorhexidine Gluconate 15 Ml Udc) 15 ml PO BID SHAHID Last Admin: 04/28/23 09:01 Dose: 15 ml Glycopyrrolate (Glycopyrrolate 1 Mg/5 Ml Vial) 0.2 mg SUBQ Q4H PRN PRN Reason: Excessive secretions Hydromorphone HCl (Hydromorphone 0.5 Mg/0.5 Ml Syringe) 0.5 mg IVP Q2H PRN PRN Reason: Pain 8 to 10 Last Admin: 04/28/23 18:36 Dose: 0.5 mg Acetaminophen (Acetaminophen) 1,000 mg in 100 mls @ 400 mls/hr IV Q6HR PRN PRN Reason: Pain or Fever > 38C (100.4F) Last Infusion: 04/26/23 21:18 Dose: Infused Loperamide HCl (Loperamide 2 Mg Capsule) 2 mg PO Q2H PRN PRN Reason: Diarrhea Lorazepam (Lorazepam 2 Mg/Ml Vial) 2 mg IVP Q30M PRN; Protocol PRN Reason: CIWA >8 Lorazepam (Lorazepam 2 Mg/Ml Vial) 1 mg IVP Q6H PRN PRN Reason: Anxiety/Agitation Morphine Sulfate (Morphine Violet 10 Mg/0.5 Ml Oral Syringe) 10 mg SL Q2HR PRN PRN Reason: Moderate Pain (Level 4-6)/SOA Ondansetron HCl (Ondansetron Odt 4 Mg Tablet) 4 mg TL Q8H PRN PRN Reason: Nausea / Vomiting Ondansetron HCl (Ondansetron 4 Mg/2 Ml Vial) 4 mg IVP Q8H PRN PRN Reason: Nausea / Vomiting Sodium Chloride (Sodium Chloride Flush 0.9% 10 Ml Syringe) 10 ml IVP 0100,0900,1700 SHAHID Last Admin: 04/28/23 18:36 Dose: 10 ml Sodium Chloride (Sodium Chloride Flush 0.9% 10 Ml Syringe) 10 ml IVP PRN PRN PRN Reason: NEEDED PER PROVIDER ORDERS Last Admin: 04/28/23 04:52 Dose: 30 ml Aspirin EC [Ecotrin] 81 mg PO DAILY 04/26/23 Atorvastatin Calcium [Lipitor] 80 mg PO DAILY 04/26/23 Benazepril HCl [Lotensin] 20 mg PO DAILY 04/26/23 Ferrous Sulfate [Slow Fe] 137 mg PO DAILY 04/26/23 Ibuprofen [Motrin] 1 tablet PO BID 04/26/23 Multivitamin 1 each PO DAILY 04/26/23 Oxycodone HCl/Acetaminophen [Percocet 10-325 mg Tablet] 1 each PO BID 04/26/23 Prednisone [Dorian] 5 mg PO Q48H 04/26/23 Promethazine [Phenergan] 25 mg PO DAILY 04/26/23 Naproxen Sodium [Aleve] 220 mg PO HS 04/27/23 Triamcinolone 0.1% Cream [Kenalog 0.1% Cream] 1 applic TOP PRN PRN 04/27/23
--- NOTE | 2023-04-28 15:10 | CONSULTATION NOTE ---
Palliative Care Consultation - Referral Referring Provider: Dr. Kassy Jiménez Time of Visit: 13:00-1430 Referral setting: Hospitalized patient Referral Reason: Goals of Care - Information Sources Records reviewed: RN notes reviewed, Previous records reviewed History/Review of Systems obtained from: Family Exam limitations: Other (patient unable to participate) - History of Present Illness Brief History of Present Illness: This is an 87-year-old gentleman who had an unfortunate event, was found down in his trailer, with injury, did have head trauma as well has fracture of C3 and 4, with a value by the spine unit [facility] and recommendation for no fixation and to keep in collar and repeat imaging in 3 weeks. Patient has been on a downward course per family for quite some time, had been living over in [place] on the [place] of the [facility], was actually supported by neighbors over there, was having more health challenges, and family was quite shocked when finally were able to go over and evaluate the situation. Patient return to "home" after 20 years, patient is originally from [place], and had moved into a trailer on his daughter's property. Patient had been progressively drinking alcohol continous ly, patient has longstanding chronic back pain was on oxycodone, had not been eating well, diet consisted mostly of Doritos, peanuts and M&Ms. Patient was unable to bathe, secondary to pain and weakness, was having frequent falls, as well as worsening cognitive changes. 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 He had been going back and forth from [place] to [place] in the winter, but spending more time at home with increased pain.He is obviously will be loved by his family, they are quite clear in the context of communication of the years, no heroics, has been quite stubborn, and has communicated briefly that he is refusing care, and intake. They are quite comfortable with transitioning to focus on comfort, are very clear they do not want to have his suffering extended. Palliative care had been asked to meet with family for clarification of goals and treatment plan. Medical/Surgical History - Past Medical History Cardiovascular: reports: Hypertension, Coronary artery disease (stented ~2000) Respiratory: reports: None Neuro: Dementia Endocrine/Autoimmune: reports: None GI: reports: Chronic constipation : reports: None Psych: reports: Depression, Anxiety Musculoskeletal: reports: Chronic back pain Derm: reports: None - Past Surgical History General: reports: Appendectomy, Other Cardiovascular: reports: Coronary stent - Substance History Use: Uses substance without health or social issues: Other (chewing tobacco) Social History - Living Situation Living arrangement: At home Living Situation: Alone Support System: [place] who is his DPOA, and Daniela his other daughter. He he does have a granddaughter lives in [facility], his great granddaughter corinne just came in from [place]. They have been providing him support in the [facility], though he is continue to choose to mostly stay in [facility], they report he refused canes or wheelchairs or walkers, that he is quite stubborn.He does have some funds, he is not on Medicaid, Janeth does have a relationship with Charlee from [place] on would be, is reaching out as a possible discharge plan Family History - Family History Family History: Mother: , Father: Medications/Allergies - Medications Active Medication List: Active Medications Albuterol/Ipratropium (Ipratropium/Albuterol 3 Ml Neb) 3 ml INH Q4HR PRN PRN Reason: Wheezing Chlorhexidine Gluconate (Chlorhexidine Gluconate 15 Ml Udc) 15 ml PO BID [facility] Last Admin: 04/28/23 09:01 Dose: 15 ml Famotidine (Famotidine 20 Mg/2 Ml Vial) 20 mg IVP BID [facility] Last Admin: 04/28/23 08:51 Dose: 20 mg Hydromorphone HCl (Hydromorphone 0.5 Mg/0.5 Ml Syringe) 0.5 mg IVP Q2H PRN PRN Reason: Pain 8 to 10 Last Admin: 04/28/23 13:04 Dose: 0.5 mg Multivitamins 10 ml/ Thiamine HCl 100 mg/ Folic Acid 1 mg/Sodium Chloride 1,011.2 mls @ 100 mls/hr IV DAILY [facility] Stop: 04/28/23 18:59 Last Admin: 04/28/23 09:30 Dose: 100 mls/hr Cefepime HCl 1 gm/ Sodium (Chloride) 100 mls @ 200 mls/hr IV Q12H [facility] Last Infusion: 04/28/23 10:15 Dose: Infused Metronidazole (Flagyl 500 Mg/100 Ml) 500 mg in 100 mls @ 100 mls/hr IV Q8H [facility] Last Admin: 04/28/23 12:51 Dose: 100 mls/hr Acetaminophen (Acetaminophen) 1,000 mg in 100 mls @ 400 mls/hr IV Q6HR PRN PRN Reason: Pain or Fever > 38C (100.4F) Last Infusion: 04/26/23 21:18 Dose: Infused Vancomycin HCl 1 gm/Vancomycin HCl 250 mg/ Sodium Chloride 250 mls @ 167 mls/hr IV Q24H [facility] Last Admin: 04/28/23 13:55 Dose: 167 mls/hr NOREPINEPHRINE/0.9 % NS (Levophed 8 Mg/250-0.9% Nacl) 8 mg in 250 mls @ 15 mls/hr IV .[id number] [facility]; Protocol Last Titration: 04/28/23 08:45 Dose: 0 mcg/min, 0 mls/hr Lorazepam (Lorazepam 2 Mg/Ml Vial) 2 mg IVP Q30M PRN; Protocol PRN Reason: CIWA >8 Ondansetron HCl (Ondansetron 4 Mg/2 Ml Vial) 4 mg IVP Q6HR PRN PRN Reason: Nausea / Vomiting Sodium Chloride (Sodium Chloride Flush 0.9% 10 Ml Syringe) 10 ml IVP 0100,0900,1700 [facility] Last Admin: 04/28/23 09:01 Dose: 10 ml Sodium Chloride (Sodium Chloride Flush 0.9% 10 Ml Syringe) 10 ml IVP PRN PRN PRN Reason: NEEDED PER PROVIDER ORDERS Last Admin: 04/28/23 04:52 Dose: 30 ml Aspirin EC [Ecotrin] 81 mg PO DAILY 04/26/23 Atorvastatin Calcium [Lipitor] 80 mg PO DAILY 04/26/23 Benazepril HCl [Lotensin] 20 mg PO DAILY 04/26/23 Ferrous Sulfate [Slow Fe] 137 mg PO DAILY 04/26/23 Ibuprofen [Motrin] 1 tablet PO BID 04/26/23 Multivitamin 1 each PO DAILY 04/26/23 Oxycodone HCl/Acetaminophen [Percocet 10-325 mg Tablet] 1 each PO BID 04/26/23 Prednisone [Dorian] 5 mg PO Q48H 04/26/23 Promethazine [Phenergan] 25 mg PO DAILY 04/26/23 Naproxen Sodium [Aleve] 220 mg PO HS 04/27/23 Triamcinolone 0.1% Cream [Kenalog 0.1% Cream] 1 applic TOP PRN PRN 04/27/23 - Allergies Allergies/Adverse Reactions: Allergies Allergy/AdvReac Type Severity Reaction Status Date / Time No Known Drug Allergies Allergy Verified 04/27/23 10:06 Review of Systems - Constitutional Constitutional: reports: Weakness, Weight loss - Ears, Nose & Throat Ears, Nose & Throat: reports: Hearing loss, Dry mouth - Gastrointestinal Gastrointestinal: reports: Other (not eating or drinking; had been eating only sweets prior to hospitalization and drinking whiskey "all day" ; has not shown any withdrawals symptoms thus far) - Genitourinary Genitourinary: reports: Other ([place]) - Musculoskeletal Musculoskeletal: reports: Other (bed bound; hard cervical collar on) - Integumentary Integumentary: reports: Other (multiple bruises) - Neurological Neurological: reports: General weakness, Memory problems, Abnormal gait - Psychiatric Psychiatric: reports: Depression, Anxiety - Hematologic/Lymphatic Hematologic/Lymph: reports: Anemia (received two units of PRBCs) Physical Exam - Vital Signs Vital Signs: Vital Signs x48h Temp Pulse Resp BP Pulse Ox 04/28/23 14:00 62 13 92/54 L 92 04/28/23 13:00 67 20 98/59 L 94 04/28/23 12:00 63 15 95/56 L 94 04/28/23 11:00 64 16 102/57 L 93 04/28/23 10:00 36.2 C L 65 14 114/52 L 93 04/28/23 09:00 36.3 C L 66 23 116/65 96 04/28/23 08:00 36.4 C L 65 14 116/65 95 04/28/23 07:00 36.5 C 71 15 121/78 96 - Physical Exam General Appearance: positive: Mild distress (to receive pain med at time of visit; grimacing; patient with known mod/severe chronic back pain) ENT: positive: Dry mucous membranes Neck: positive: Stiff neck Respiratory: positive: No respiratory distress Skin: positive: Bruising Neurologic/Psychiatric: positive: Weakness, Depressed mood/affect, Flat affect Palliative Care - POLST Patient has POLST: Yes POLST Status: DNR, Comfort Measures (completed at visit) Performance Status: Patient had been having declining functional status with more falls, often did remember falling. Not bathing, spending most the time in the trailer. Had previously had decrease in functional status as well, with multiple health changes [place] - Palliative Care Discussion: Met with Janeth patient's daughter who is DPOA, daughter Daniela, granddaughter Tanisha, and great granddaughter began for family meeting regarding goals of care. Reviewed their current understanding of conditions, does recognize that he is most likely not going to recover from this, and that in the context of his goals, he wants "no heroics" including tube feedings, or to have his life prolonged. Family's goals are to focus on comfort, not to have patient suffering prolonged, it has been difficult for them with his rapid decline over the last several months, but has been declining over the last 7 years. He did lose his to lung cancer in 2000. Patient has long-term been incapacitated by his back pain, has been on chronic opioids, and increased alcohol use over the last several years and more significantly over the last several months, attributed to both worsening pain and loneliness and depression. Patient is also developed dementia and cognitive changes, and do not perceive his quality of life is something he has appreciated. In review of next steps, they do not want to take him home for hospice care, would like him in a facility. Janeth actually has good friends with Charlee who h as an adult family home and has reached out. (did confirm by end of visit time had an opening). Introduced the role and support of hospice, and the continuum of care. Discussed again at this point in withdrawing IVs, medications, and transitioning to comfort care. This is in line with their goals of comfort and hoping for a peaceful . POLST completed with DNAR/DNI and comfort focused care. Goals to find as focus on comfort, not to prolong suffering, and a peaceful and respectful . Results - Lab Results Lab results reviewed: Yes Fish Bones: 04/28/23 06:20 04/28/23 06:20 Lab and Imaging Results: Lab Results x24hrs 04/28/23 04/28/23 04/28/23 Range/Units 06:20 06:20 06:20 WBC (4.8-10.8) x10^3/uL RBC (4.70-6.10) 10^6/uL Hgb (14.0-18.0) g/dL Hct (42.0-52.0) % MCV (80.0-94.0) fL MCH (27.0-31.0) pg MCHC (32.0-36.0) g/dL RDW (12.0-15.0) % Plt Count (130-450) 10^3/uL MPV (7.4-11.4) fL Neut # (Auto) (1.5-6.6) 10^3/uL Lymph # (Auto) (1.5-3.5) 10^3/uL [place] # (Auto) (0.0-1.0) 10^3/uL Eos # (Auto) (0.0-0.7) 10^3/uL Baso # (Auto) (0.0-0.1) 10^3/uL Absolute Nucleated RBC x10^3/uL Nucleated RBC % /100WBC Manual Slide Review Platelet Estimate (NORMAL) RBC Morph Micro Appear (NORMAL) VBG pH 7.380 (7.31-7.41) Ionized Calcium 1.19 (1.15-1.33) mmol/L Sodium (135-145) mmol/L Potassium (3.5-4.5) mmol/L Chloride (101-111) mmol/L Carbon Dioxide (21-32) mmol/L Anion Gap (6-13) BUN (6-20) mg/dL Creatinine (0.6-1.3) mg/dL Estimated GFR (MDRD) (>89) Glucose (74-104) mg/dL POC Whole Bld Glucose (70 - 100) mg/dL Calcium (8.5-10.3) mg/dL Phosphorus 3.6 (2.5-5.0) mg/dL Magnesium (1.7-2.3) mg/dL Total Bilirubin (0.2-1.0) mg/dL AST (10-42) IU/L ALT (10-60) IU/L Alkaline Phosphatase (42-121) IU/L Total Creatine Kinase (30-223) IU/L B-Natriuretic Peptide 587 H (5-100) pg/mL Total Protein (6.4-8.9) g/dL Albumin (3.2-5.5) g/dL Globulin (2.1-4.2) g/dL Albumin/Globulin Ratio (1.0-2.2) 04/28/23 04/28/23 04/27/23 Range/Units 06:20 06:20 22:52 WBC 5.9 (4.8-10.8) x10^3/uL RBC 2.72 L (4.70-6.10) 10^6/uL Hgb 9.2 L (14.0-18.0) g/dL Hct 27.2 L (42.0-52.0) % MCV 100.0 H (80.0-94.0) fL MCH 33.8 H (27.0-31.0) pg MCHC 33.8 (32.0-36.0) g/dL RDW 20.2 H (12.0-15.0) % Plt Count 105 L (130-450) 10^3/uL MPV 9.6 (7.4-11.4) fL Neut # (Auto) 4.5 (1.5-6.6) 10^3/uL Lymph # (Auto) 0.7 L (1.5-3.5) 10^3/uL [place] # (Auto) 0.5 (0.0-1.0) 10^3/uL Eos # (Auto) 0.0 (0.0-0.7) 10^3/uL Baso # (Auto) 0.0 (0.0-0.1) 10^3/uL Absolute Nucleated RBC 0.00 x10^3/uL Nucleated RBC % 0.0 /100WBC Manual Slide Review Indicated Platelet Estimate DECREASED (<130,000) (NORMAL) RBC Morph Micro Appear 1+ OVALOCYTES (NORMAL) VBG pH (7.31-7.41) Ionized Calcium (1.15-1.33) mmol/L Sodium 142 (135-145) mmol/L Potassium 3.7 (3.5-4.5) mmol/L Chloride 116 H (101-111) mmol/L Carbon Dioxide 15 L (21-32) mmol/L Anion Gap 11.0 (6-13) BUN 18 (6-20) mg/dL Creatinine 0.9 (0.6-1.3) mg/dL Estimated GFR (MDRD) 80 L (>89) Glucose 142 H (74-104) mg/dL POC Whole Bld Glucose 133 H (70 - 100) mg/dL Calcium 7.5 L (8.5-10.3) mg/dL Phosphorus (2.5-5.0) mg/dL Magnesium 2.0 (1.7-2.3) mg/dL Total Bilirubin 0.6 (0.2-1.0) mg/dL AST 129 H (10-42) IU/L ALT 52 (10-60) IU/L Alkaline Phosphatase 114 (42-121) IU/L Total Creatine Kinase 1008 H* (30-223) IU/L B-Natriuretic Peptide (5-100) pg/mL Total Protein 3.9 L (6.4-8.9) g/dL Albumin 2.0 L (3.2-5.5) g/dL Globulin 1.9 L (2.1-4.2) g/dL Albumin/Globulin Ratio 1.1 (1.0-2.2) 04/27/23 Range/Units 21:45 WBC (4.8-10.8) x10^3/uL RBC (4.70-6.10) 10^6/uL Hgb 10.1 L (14.0-18.0) g/dL Hct (42.0-52.0) % MCV (80.0-94.0) fL MCH (27.0-31.0) pg MCHC (32.0-36.0) g/dL RDW (12.0-15.0) % Plt Count (130-450) 10^3/uL MPV (7.4-11.4) fL Neut # (Auto) (1.5-6.6) 10^3/uL Lymph # (Auto) (1.5-3.5) 10^3/uL [place] # (Auto) (0.0-1.0) 10^3/uL Eos # (Auto) (0.0-0.7) 10^3/uL Baso # (Auto) (0.0-0.1) 10^3/uL Absolute Nucleated RBC x10^3/uL Nucleated RBC % /100WBC Manual Slide Review Platelet Estimate (NORMAL) RBC Morph Micro Appear (NORMAL) VBG pH (7.31-7.41) Ionized Calcium (1.15-1.33) mmol/L Sodium (135-145) mmol/L Potassium (3.5-4.5) mmol/L Chloride (101-111) mmol/L Carbon Dioxide (21-32) mmol/L Anion Gap (6-13) BUN (6-20) mg/dL Creatinine (0.6-1.3) mg/dL Estimated GFR (MDRD) (>89) Glucose (74-104) mg/dL POC Whole Bld Glucose (70 - 100) mg/dL Calcium (8.5-10.3) mg/dL Phosphorus (2.5-5.0) mg/dL Magnesium (1.7-2.3) mg/dL Total Bilirubin (0.2-1.0) mg/dL AST (10-42) IU/L ALT (10-60) IU/L Alkaline Phosphatase (42-121) IU/L Total Creatine Kinase (30-223) IU/L B-Natriuretic Peptide (5-100) pg/mL Total Protein (6.4-8.9) g/dL Albumin (3.2-5.5) g/dL Globulin (2.1-4.2) g/dL Albumin/Globulin Ratio (1.0-2.2) Impression and Recommendations - Palliative Care Impression: This is an 87-year-old gentleman admitted with acute trauma, rhabdomyolysis, pulmonary embolism, colitis, known alcoholism, and pancytopenia. Patient is quite frail, his underlying condition has been declining over several months to years.Patient has long-term chronic and debilitating back pain, now with acute pain related to cervical fractures, would benefit from more aggressive pain management, with alignment of patient's family's goals for comfort and not prolonging suffering. Family meeting with DPOA and other family members, in agreement for transition to comfort measures, and hospice support for discharge. Recommendations/Counseling Done: 1. Acute on chronic pain. Patient is not opioid esther, is requiring frequent small amounts of hydromorphone IV for comfort. Patient has been on oxycodone 1- 2 tabs up to 2-3 times a day, as well as using alcohol for pain management. Would recommend as getting ready to transition, initiating fentanyl 12 mcg patch, and transition to Roxanol 5 mg every 2 to 4 hours for breakthrough pain. 2. Advance care planning. Patient with poor prognostic variables, with u nderlying deconditioning, alcoholism, pancytopenia, poor nutritional status, and now with acute trauma and follow-up from fall. Family's goals are to focus on comfort, not to prolong suffering, recognizing patient's time most likely days to weeks. Would like to be discharged to facility/[facility] for end of life care with hospice support. Follow-up with hospitalist, regarding transitioning to comfort measures and withdrawing care. Follow-up with social work, regarding placement and family decision for comfort focused care. 90 minutes with review of chart, records, nursing input, coordination of care with hospitalist, hospice, social work. Family meeting for counseling regarding goals of care, clarifying patient and family values, anticipatory guidance provided, and recommendations made.
[2023-04-28] MEDS ORDERED: LORazepam 2 MG/ML VIAL IVP PRN (15:21)
[2023-04-28] MEDS ORDERED: ONDANSETRON 4 MG/2 ML VIAL IVP PRN (15:21)
[2023-04-28] MEDS ORDERED: LOPERAMIDE 2 MG CAPSULE PO PRN (15:21)
[2023-04-28] MEDS ORDERED: ONDANSETRON ODT 4 MG TABLET TL PRN (15:21)
[2023-04-29] MEDS: MORPHINE SOL 10 MG/0.5 ML ORAL SYRINGE SL PRN (15:40)
--- NOTE | 2023-04-29 19:33 | PROVIDER PROGRESS NOTE ---
Assessment/Plan - Problem List (1) Shock circulatory Assessment/Plan: 2) Fall at home (3) Rhabdomyolysis (4) C3 cervical fracture (5) C4 cervical fracture (6) Pulmonary embolism (7) Colitis (8) Alcoholism (9) Pancytopenia (10) Hypothermia Comments/plan: Palliative care has met with family to include 3 daughters, Luis A who is the DPOA and after some discussion the decision has been made to focus on comfort. I discussed goals of care briefly with the family and they confirmed that they wish to focus on comfort. Patient is not competent to make his own decisions at this time and goals of care were deferred to family. Continue comfort care. Patient is medically clear for discharge to a home health facility for hospice. - Current Meds Current Meds: Current Medications Generic Name Dose Route Start Last Admin Trade Name Freq PRN Reason Stop Dose Admin Chlorhexidine Gluconate 15 ml 04/26/23 21:00 04/29/23 10:41 Chlorhexidine Gluconate 15 Ml Udc PO 15 ml BID SHAHID Administration Hydromorphone HCl 0.5 mg 04/26/23 18:06 04/29/23 10:42 Hydromorphone 0.5 Mg/0.5 Ml Syringe IVP 0.5 mg Q2H PRN Administration Pain 8 to 10 Acetaminophen 1,000 mg in 100 mls @ 400 mls/hr 04/26/23 18:56 04/26/23 21:18 Acetaminophen IV Infused Q6HR PRN Infusion Pain or Fever > 38C (100.4F) Morphine Sulfate 10 mg 04/28/23 15:21 04/29/23 15:40 Morphine Violet 10 Mg/0.5 Ml Oral Syringe SL 10 mg Q2HR PRN Administration Moderate Pain (Level 4-6)/SOA Sodium Chloride 10 ml 04/27/23 01:00 04/29/23 10:45 Sodium Chloride Flush 0.9% 10 Ml Syringe IVP 10 ml 0100,0900,1700 SHAHID Administration Sodium Chloride 10 ml 04/26/23 18:06 04/28/23 04:52 Sodium Chloride Flush 0.9% 10 Ml Syringe IVP 30 ml PRN PRN Administration NEEDED PER PROVIDER ORDERS - Lab Result Fish Bone Diagrams: 04/28/23 06:20 04/28/23 06:20 Objective Vital Signs: Vital Signs - 24 hr 04/29/23 08:00 Temperature 36.1 C L Heart Rate [ 64 Monitoring electrodes] Respiratory 14 Rate Blood Pressure 93/50 L [Right Brachial artery] O2 Saturation 93 Oxygen O2 Source Room air I&O (Last 24 Hrs): Intake and Output Totals x24h 04/27/23 04/28/23 04/29/23 23:59 23:59 23:59 Intake Total 6974.714 1930.325 Output Total 386 293 Balance 6588.714 1637.325 General: No acute distress HEENT: Other (Anicteric sclera.) Neck: Supple, No JVD, No thyromegaly, Other Cardiovascular: Other (Positive S1-S2 no extra heart sounds) Respiratory: Other (Good air exchange in all lung gale no wheezing no crackles) Abdomen: Normal bowel sounds, Soft, No tenderness Extremities: No cyanosis, No edema Skin: No rashes - Results Results: Laboratory Results WBC 5.9 x10^3/uL (4.8-10.8) 04/28/23 06:20 RBC 2.72 10^6/uL (4.70-6.10) L 04/28/23 06:20 Hgb 9.2 g/dL (14.0-18.0) L 04/28/23 06:20 Hct 27.2 % (42.0-52.0) L 04/28/23 06:20 MCV 100.0 fL (80.0-94.0) H 04/28/23 06:20 MCH 33.8 pg (27.0-31.0) H 04/28/23 06:20 MCHC 33.8 g/dL (32.0-36.0) 04/28/23 06:20 RDW 20.2 % (12.0-15.0) H 04/28/23 06:20 Plt Count 105 10^3/uL (130-450) L 04/28/23 06:20 MPV 9.6 fL (7.4-11.4) 04/28/23 06:20 Neut # (Auto) 4.5 10^3/uL (1.5-6.6) 04/28/23 06:20 Lymph # (Auto) 0.7 10^3/uL (1.5-3.5) L 04/28/23 06:20 Nance # (Auto) 0.5 10^3/uL (0.0-1.0) 04/28/23 06:20 Eos # (Auto) 0.0 10^3/uL (0.0-0.7) 04/28/23 06:20 Baso # (Auto) 0.0 10^3/uL (0.0-0.1) 04/28/23 06:20 Absolute Nucleated RBC 0.00 x10^3/uL 04/28/23 06:20 Total Counted 100 04/26/23 11:53 Band Neuts % (Manual) 9 % (0-10) 04/26/23 11:53 Abnorm Lymph % (Manual) 0 % 04/26/23 11:53 Nucleated RBC % 0.0 /100WBC 04/28/23 06:20 Neutrophils # (Manual) 1.4 10^3/uL (1.5-6.6) L 04/26/23 11:53 Lymphocytes # (Manual) 0.3 10^3/uL (1.5-3.5) L 04/26/23 11:53 Monocytes # (Manual) 0.1 10^3/uL (0.0-1.0) 04/26/23 11:53 Eosinophils # (Manual) 0.0 10^3/uL (0-0.7) 04/26/23 11:53 Basophils # (Manual) 0.0 10^3/uL (0-0.1) 04/26/23 11:53 Differential Comment MANUAL DIFFERENTIAL 04/26/23 11:53 Manual Slide Review Indicated 04/28/23 06:20 WBC Morphology NORMAL APPEARANCE (NORMAL) 04/26/23 11:53 Platelet Estimate DECREASED (<130,000) (NORMAL) 04/28/23 06:20 Platelet Morphology NORMAL APPEARANCE (NORMAL) 04/27/23 04:42 RBC Morph Micro Appear 1+ ANISOCYTOSIS (NORMAL) 1+ MACROCYTOSIS (NORMAL) 1+ HYPOCHROMASIA (NORMAL) 1+ OVALOCYTES (NORMAL) 04/28/23 06:20 RBC Morph Micro Appear 1+ ANISOCYTOSIS (NORMAL) 1+ MACROCYTOSIS (NORMAL) 1+ HYPOCHROMASIA (NORMAL) 1+ OVALOCYTES (NORMAL) 04/28/23 06:20 RBC Morph Micro Appear 1+ ANISOCYTOSIS (NORMAL) 1+ MACROCYTOSIS (NORMAL) 1+ HYPOCHROMASIA (NORMAL) 1+ OVALOCYTES (NORMAL) 04/28/23 06:20 RBC Morph Micro Appear 1+ ANISOCYTOSIS (NORMAL) 1+ MACROCYTOSIS (NORMAL) 1+ HYPOCHROMASIA (NORMAL) 1+ OVALOCYTES (NORMAL) 04/28/23 06:20 PT 13.0 secs (9.9-12.6) H 04/26/23 11:53 INR 1.2 (0.8-1.2) 04/26/23 11:53 APTT secs (24.9-33.3) 04/26/23 21:04 VBG pH 7.380 (7.31-7.41) 04/28/23 06:20 VBG pCO2 34.8 mmHg (41-51) L 04/26/23 11:53 VBG pO2 120.9 mmHg (25-47) H 04/26/23 11:53 VBG HCO3 21.9 mmol/L (23-28) L 04/26/23 11:53 VBG Total CO2 22.9 mmol/L (24-29) L 04/26/23 11:53 VBG O2 Saturation 97.6 % (60-80) H 04/26/23 11:53 VBG Base Excess -2.3 mmol/L (-2 - +2) L 04/26/23 11:53 Ionized Calcium 1.19 mmol/L (1.15-1.33) 04/28/23 06:20 Sodium 142 mmol/L (135-145) 04/28/23 06:20 Potassium 3.7 mmol/L (3.5-4.5) 04/28/23 06:20 Chloride 116 mmol/L (101-111) H 04/28/23 06:20 Carbon Dioxide 15 mmol/L (21-32) L 04/28/23 06:20 Anion Gap 11.0 (6-13) 04/28/23 06:20 BUN 18 mg/dL (6-20) 04/28/23 06:20 Creatinine 0.9 mg/dL (0.6-1.3) 04/28/23 06:20 Estimated GFR (MDRD) 80 (>89) L 04/28/23 06:20 Glucose 142 mg/dL (74-104) H 04/28/23 06:20 POC Whole Bld Glucose 133 mg/dL (70 - 100) H 04/27/23 22:52 Lactic Acid 1.1 mmol/L (0.5-2.2) 04/26/23 20:45 Calcium 7.5 mg/dL (8.5-10.3) L 04/28/23 06:20 Ionized Calcium YES 04/27/23 10:40 Phosphorus 3.6 mg/dL (2.5-5.0) 04/28/23 06:20 Magnesium 2.0 mg/dL (1.7-2.3) 04/28/23 06:20 Total Bilirubin 0.6 mg/dL (0.2-1.0) 04/28/23 06:20 AST 129 IU/L (10-42) H 04/28/23 06:20 ALT 52 IU/L (10-60) 04/28/23 06:20 Alkaline Phosphatase 114 IU/L (42-121) 04/28/23 06:20 Total Creatine Kinase 1008 IU/L (30-223) H* 04/28/23 06:20 Troponin I High Sens 38.6 ng/L (2.3-19.7) H* 04/27/23 04:42 B-Natriuretic Peptide 587 pg/mL (5-100) H 04/28/23 06:20 Total Protein 3.9 g/dL (6.4-8.9) L 04/28/23 06:20 Albumin 2.0 g/dL (3.2-5.5) L 04/28/23 06:20 Globulin 1.9 g/dL (2.1-4.2) L 04/28/23 06:20 Albumin/Globulin Ratio 1.1 (1.0-2.2) 04/28/23 06:20 Vitamin B12 641 pg/mL (180-914) 04/27/23 04:42 Folate 16.5 ng/mL (5.90 - >24.8) 04/27/23 04:42 TSH 1.13 uIU/mL (0.34-5.60) 04/26/23 11:53 Urine Color YELLOW 04/26/23 12:24 Urine Clarity CLEAR (CLEAR) 04/26/23 12:24 Urine pH 7.0 PH (5.0-7.5) 04/26/23 12:24 Ur Specific [place] <=1.005 (1.002-1.030) 04/26/23 12:24 Urine Protein NEGATIVE mg/dL (NEGATIVE) 04/26/23 12:24 Urine Glucose (UA) NEGATIVE mg/dL (NEGATIVE) 04/26/23 12:24 Urine Ketones NEGATIVE mg/dL (NEGATIVE) 04/26/23 12:24 Urine Occult Blood TRACE-INTA (NEGATIVE) 04/26/23 12:24 Urine Nitrite NEGATIVE (NEGATIVE) 04/26/23 12:24 Urine Bilirubin NEGATIVE (NEGATIVE) 04/26/23 12:24 Urine Urobilinogen 1 (NORMAL) E.U./dL (NORMAL) 04/26/23 12:24 Ur Leukocyte Esterase NEGATIVE (NEGATIVE) 04/26/23 12:24 Urine RBC 0-5 /HPF (0-5) 04/26/23 12:24 Urine WBC 0-3 /HPF (0-3) 04/26/23 12:24 Ur Squamous Epith Cells FEW Squamous (<= Few) 04/26/23 12:24 Urine Bacteria Rare /HPF (None Seen) 04/26/23 12:24 Urine Culture Comments NOT INDICATED 04/26/23 12:24 Nasal Adenovirus (PCR) NOT DETECTED 04/26/23 13:45 Nasal B. parapertussis DNA (PCR) NOT DETECTED 04/26/23 13:45 Nasal Coronavir 229E PCR NOT DETECTED 04/26/23 13:45 Nasal Coronavir HKU1 PCR NOT DETECTED 04/26/23 13:45 Nasal Coronavir NL63 PCR NOT DETECTED 04/26/23 13:45 Nasal Coronavir OC43 PCR NOT DETECTED 04/26/23 13:45 Nasal Enterovir/Rhinovir PCR NOT DETECTED 04/26/23 13:45 Nasal Influenza B PCR NOT DETECTED 04/26/23 13:45 Nasal Influenza A PCR NOT DETECTED 04/26/23 13:45 Nasal Parainfluen 1 PCR NOT DETECTED 04/26/23 13:45 Nasal Parainfluen 2 PCR NOT DETECTED 04/26/23 13:45 Nasal Parainfluen 3 PCR NOT DETECTED 04/26/23 13:45 Nasal Parainfluen 4 PCR NOT DETECTED 04/26/23 13:45 Nasal RSV (PCR) NOT DETECTED 04/26/23 13:45 Nasal Screen MRSA (PCR) NEGATIVE (NEGATIVE) 04/26/23 19:03 Nasal B.pertussis DNA PCR NOT DETECTED 04/26/23 13:45 Nasal C.pneumoniae (PCR) NOT DETECTED 04/26/23 13:45 Bladimir Human Metapneumo PCR NOT DETECTED 04/26/23 13:45 Nasal M.pneumoniae (PCR) NOT DETECTED 04/26/23 13:45 Nasal SARS-CoV-2 (PCR) NOT DETECTED 04/26/23 13:45 Urine Opiates Screen NEGATIVE (NEGATIVE) 04/26/23 12:24 Ur Buprenorphine Scrn NEGATIVE (NEGATIVE) 04/26/23 12:24 Ur Oxycodone Screen POSITIVE (NEGATIVE) H 04/26/23 12:24 Urine Methadone Screen NEGATIVE (NEGATIVE) 04/26/23 12:24 Ur Barbiturates Screen NEGATIVE (NEGATIVE) 04/26/23 12:24 Ur Tricyclics Screen NEGATIVE (NEGATIVE) 04/26/23 12:24 Ur Phencyclidine Scrn NEGATIVE (NEGATIVE) 04/26/23 12:24 Ur Amphetamine Screen NEGATIVE (NEGATIVE) 04/26/23 12:24 U Methamphetamines Scrn NEGATIVE (NEGATIVE) 04/26/23 12:24 U Benzodiazepines Scrn NEGATIVE (NEGATIVE) 04/26/23 12:24 Urine Cocaine Screen NEGATIVE (NEGATIVE) 04/26/23 12:24 U Cannabinoids Screen NEGATIVE (NEGATIVE) 04/26/23 12:24 Ur Drug Screen Comment CUTOFF CONC BELOW: 04/26/23 12:24 Ethyl Alcohol 83.7 mg/dL 04/26/23 11:53 Blood Type AB POSITIVE 04/26/23 11:53 Blood Type Recheck AB POSITIVE 04/26/23 11:35 Antibody Screen NEGATIVE 04/26/23 11:53 Crossmatch IS Only See Detail 04/26/23 11:53 ABX Reporting Has patient been on IV antibiotics over the past 48 hours?: No Current Medications - Current Medications Current Medications: Active Medications Albuterol/Ipratropium (Ipratropium/Albuterol 3 Ml Neb) 3 ml INH Q4HR PRN PRN Reason: Wheezing Chlorhexidine Gluconate (Chlorhexidine Gluconate 15 Ml Udc) 15 ml PO BID SHAHID Last Admin: 04/29/23 10:41 Dose: 15 ml Glycopyrrolate (Glycopyrrolate 1 Mg/5 Ml Vial) 0.2 mg SUBQ Q4H PRN PRN Reason: Excessive secretions Hydromorphone HCl (Hydromorphone 0.5 Mg/0.5 Ml Syringe) 0.5 mg IVP Q2H PRN PRN Reason: Pain 8 to 10 Last Admin: 04/29/23 10:42 Dose: 0.5 mg Acetaminophen (Acetaminophen) 1,000 mg in 100 mls @ 400 mls/hr IV Q6HR PRN PRN Reason: Pain or Fever > 38C (100.4F) Last Infusion: 04/26/23 21:18 Dose: Infused Loperamide HCl (Loperamide 2 Mg Capsule) 2 mg PO Q2H PRN PRN Reason: Diarrhea Lorazepam (Lorazepam 2 Mg/Ml Vial) 2 mg IVP Q30M PRN; Protocol PRN Reason: CIWA >8 Lorazepam (Lorazepam 2 Mg/Ml Vial) 1 mg IVP Q6H PRN PRN Reason: Anxiety/Agitation Morphine Sulfate (Morphine Violet 10 Mg/0.5 Ml Oral Syringe) 10 mg SL Q2HR PRN PRN Reason: Moderate Pain (Level 4-6)/SOA Last Admin: 04/29/23 15:40 Dose: 10 mg Ondansetron HCl (Ondansetron Odt 4 Mg Tablet) 4 mg TL Q8H PRN PRN Reason: Nausea / Vomiting Ondansetron HCl (Ondansetron 4 Mg/2 Ml Vial) 4 mg IVP Q8H PRN PRN Reason: Nausea / Vomiting Sodium Chloride (Sodium Chloride Flush 0.9% 10 Ml Syringe) 10 ml IVP 0100,0900,1700 SHAHID Last Admin: 04/29/23 10:45 Dose: 10 ml Sodium Chloride (Sodium Chloride Flush 0.9% 10 Ml Syringe) 10 ml IVP PRN PRN PRN Reason: NEEDED PER PROVIDER ORDERS Last Admin: 04/28/23 04:52 Dose: 30 ml Aspirin EC [Ecotrin] 81 mg PO DAILY 04/26/23 Atorvastatin Calcium [Lipitor] 80 mg PO DAILY 04/26/23 Benazepril HCl [Lotensin] 20 mg PO DAILY 04/26/23 Ferrous Sulfate [Slow Fe] 137 mg PO DAILY 04/26/23 Ibuprofen [Motrin] 1 tablet PO BID 04/26/23 Multivitamin 1 each PO DAILY 04/26/23 Oxycodone HCl/Acetaminophen [Percocet 10-325 mg Tablet] 1 each PO BID 04/26/23 Prednisone [Dorian] 5 mg PO Q48H 04/26/23 Promethazine [Phenergan] 25 mg PO DAILY 04/26/23 Naproxen Sodium [Aleve] 220 mg PO HS 04/27/23 Triamcinolone 0.1% Cream [Kenalog 0.1% Cream] 1 applic TOP PRN PRN 04/27/23
[2023-04-30 08:26] VITALS: BP 103/59; O2SAT 95
--- NOTE | 2023-04-30 14:02 | Discharge Plan ---
"Discharge Plan for SNF / [facility] - Discharge Plan And Transition Orders Problem Reviewed?: Yes Disposition: 50 Hospice/Home DC/Xfer Condition: Serious Allergies and Adverse Reactions: Allergies Allergy/AdvReac Type Severity Reaction Status Date / Time No Known Drug Allergies Allergy Verified 04/27/23 10:06 Health Concerns: Anand Lovell is an 87 -year-old man who was found down in his trailer. His fall resulted in a fracture of C3 and C3-4. Per his family, patient's clinical condition has been declining. His alcohol consumption is daily and reportedly has increased. Per his family his diet has been very poor. Palliative care service met with the patient's family and the decision was made to transition patient to comfort care. Patient is not competent to make his own decisions and goals of care were deferred to his family. Patient's CODE STATUS is DO NOT RESUSCITATE and goal of care is comfort. Plan of Treatment: Comfort care Care Goals: Comfort care Assessment: (1) Shock circulatory Impression: (2) Fall at home (3) Rhabdomyolysis (4) C3 cervical fracture (5) C4 cervical fracture (6) Pulmonary embolism (7) Colitis (8) Alcoholism (9) Pancytopenia (10) Hypothermia Comments/plan: Palliative care has met with family to include 3 daughters, Luis A who is the DPOA and after some discussion the decision has been made to focus on comfort. I discussed goals of care briefly with the family and they confirmed that they wish to focus on comfort. Patient is not competent to make his own decisions at this time and goals of care were deferred to family. Comfort care orders have been written. - SNF / SENIOR CARE Transition Orders Admit to (Facility): [facility] Discharge Diagnosis: (1) Shock circulatory (2) Fall at home (3) Rhabdomyolysis (4) C3 cervical fracture (5) C4 cervical fracture (6) Pulmonary embolism (7) Colitis (8) Alcoholism (9) Pancytopenia (10) Hypothermia Medicare Certification Statement: Notify PCP of admission and forward orders to primary provider for signature. Other Notification Orders: Call PCP immediately if patient develops dyspnea, chest pain/tightness or edema. House Bowel Program: Yes Additional Bowel Program Orders: If no BM after 2 days, nurse may give M.O.M. 30ml PO PRN and/or ducolax Supp 1 [place] and/or RAFA 250mg P.O., and/or senna 1-2 tabs PO. On day 3 nurse may give repeat above order until residents constipation is resolved. Annual Influenza Vaccine (between Nov 28 and June 27): No Two-step PPD per [facility] [phone] or approved exception documents: No Medication Orders: PLEASE REFER TO THE DISCHARGE MEDICATION LIST. Insulin Orders?: No - Medications New Prescriptions: LORazepam [Ativan] 0.5 mg PO Q6H PRN #10 tablet PRN Reason: Anxiety Bisacodyl Supp [Dulcolax Supp] 10 mg [place] DAILY PRN #3 supp PRN Reason: Constipation Morphine Sulfate 5 mg PO Q2H PRN #30 ml PRN Reason: Moderate to Severe pain. Senna [Senokot] 8.6 mg PO BID PRN #10 tablet PRN Reason: Constipation OLANZapine ODT [Zyprexa Odt] 5 mg TL BID PRN #10 tablet PRN Reason: Nausea / Vomiting - Diet Liquids: [place] thick May have monthly special meal: No - Therapies | Activity Activity: Bedrest Weight Bearing: No Weight Follow Up: Follow-up with Aidan Mendoza MD as needed."
--- NOTE | 2023-04-30 14:03 | DISCHARGE SUMMARY ---
"Discharge Summary Admit Date: 04/26/23 Discharge Date: 04/30/23 Discharging Provider: Norm Munoz MD Code Status: Do Not Attempt Resuscitation Condition at Discharge: Serious Discharge Disposition: 50 Hospice/Home DC/Xfer - DIAGNOSES Admission Diagnoses: (1) Shock circulatory (2) Fall at home (3) Rhabdomyolysis (4) C3 cervical fracture (5) C4 cervical fracture (6) Pulmonary embolism (7) Colitis (8) Alcoholism (9) Pancytopenia (10) Hypothermia Discharge Diagnoses with Status of Each Condition: (1) Shock circulatory (2) Fall at home (3) Rhabdomyolysis (4) C3 cervical fracture (5) C4 cervical fracture (6) Pulmonary embolism (7) Colitis (8) Alcoholism (9) Pancytopenia (10) Hypothermia - HPI History of Present Illness: Anand Lovell is an 87 -year-old man who was found down in his trailer. His fall resulted in a fracture of C3 and C3-4. Per his family, patient's clinical condition has been declining. His alcohol consumption is daily and reportedly has increased. Per his family his diet has been very poor. Palliative care service met with the patient's family and the decision was made to transition patient to comfort care. Patient is not competent to make his own decisions and goals of care were deferred to his family. Patient's CODE STATUS is DO NOT RESUSCITATE and goal of care is comfort. - CONSULTS | PROCEDURES Consultations: 04/28/2023 Palliative Care - HOSPITAL COURSE Hospital Course: See HPI - ALLERGIES Allergies/Adverse Reactions: Allergies Allergy/AdvReac Type Severity Reaction Status Date / Time No Known Drug Allergies Allergy Verified 04/27/23 10:06 - MEDICATIONS Home Medications: Ambulatory Orders Medication Instructions Recorded Confirmed Triamcinolone 0.1% Cream [Kenalog 1 applic TOP PRN PRN 04/27/23 04/27/23 0.1% Cream] Bisacodyl Supp [Dulcolax Supp] 10 mg [place] DAILY PRN #3 supp 04/30/23 LORazepam [Ativan] 0.5 mg PO Q6H PRN #10 tablet 04/30/23 Morphine Sulfate 5 mg PO Q2H PRN #30 ml 04/30/23 OLANZapine ODT [Zyprexa Odt] 5 mg TL BID PRN #10 tablet 04/30/23 Senna [Senokot] 8.6 mg PO BID PRN #10 tablet 04/30/23 - PHYSICAL EXAM AT DISCHARGE General Appearance: positive: No acute distress Eyes Bilateral: positive: Normal inspection, No lid inflammation, No scleral icterus Neck: positive: Thyroid nml, No JVD, Trachea midline Respiratory: positive: Chest non-tender, No respiratory distress, Breath sounds nml Cardiovascular: positive: Regular rate & rhythm, No murmur, No gallop Abdomen: positive: Non-tender, No organomegaly, Nml bowel sounds, No distention Skin: positive: No rash - LABS Result Diagrams: 04/28/23 06:20 04/28/23 06:20 - QUALITY (Female Hip Fx Only) Was patient sent home on osteoporosis medication?: No (Hospice Care) - FOLLOW UP Follow Up: Follow-up with Aidan Mendoza MD - TIME SPENT Time Spent in Discharge (Minutes): 28"
[2023-04-30] MEDS: GLYCOPYRROLATE 1 MG/5 ML VIAL SUBQ PRN (14:06)
--- NOTE | 2023-04-30 21:05 | PROVIDER PROGRESS NOTE ---
Assessment/Plan - Current Meds Current Meds: Current Medications Generic Name Dose Route Start Last Admin Trade Name Freq PRN Reason Stop Dose Admin Chlorhexidine Gluconate 15 ml 04/26/23 21:00 04/30/23 20:21 Chlorhexidine Gluconate 15 Ml Udc PO Not Given BID SHAHID Glycopyrrolate 0.2 mg 04/28/23 15:21 04/30/23 20:24 Glycopyrrolate 1 Mg/5 Ml Vial SUBQ 0.2 mg Q4H PRN Administration Excessive secretions Hydromorphone HCl 0.5 mg 04/26/23 18:06 04/29/23 10:42 Hydromorphone 0.5 Mg/0.5 Ml Syringe IVP 0.5 mg Q2H PRN Administration Pain 8 to 10 Acetaminophen 1,000 mg in 100 mls @ 400 mls/hr 04/26/23 18:56 04/26/23 21:18 Acetaminophen IV Infused Q6HR PRN Infusion Pain or Fever > 38C (100.4F) Morphine Sulfate 10 mg 04/28/23 15:21 04/30/23 20:21 Morphine Violet 10 Mg/0.5 Ml Oral Syringe SL 10 mg Q2HR PRN Administration Moderate Pain (Level 4-6)/SOA Sodium Chloride 10 ml 04/27/23 01:00 04/30/23 19:23 Sodium Chloride Flush 0.9% 10 Ml Syringe IVP 10 ml 0100,0900,1700 SHAHID Administration Sodium Chloride 10 ml 04/26/23 18:06 04/28/23 04:52 Sodium Chloride Flush 0.9% 10 Ml Syringe IVP 30 ml PRN PRN Administration NEEDED PER PROVIDER ORDERS - Lab Result Fish Bone Diagrams: 04/28/23 06:20 04/28/23 06:20 Objective Vital Signs: Vital Signs - 24 hr 04/30/23 08:16 Temperature 36.6 C Heart Rate [ 72 Monitoring electrodes] Respiratory 17 Rate Blood Pressure 103/59 L [Right Brachial artery] O2 Saturation 95 Oxygen O2 Source Room air I&O (Last 24 Hrs): Intake and Output Totals x24h 04/28/23 04/29/23 04/30/23 23:59 23:59 23:59 Intake Total 1930.325 80 Output Total 293 330 Balance 1637.325 -250 General: No acute distress HEENT: Atraumatic Neck: Supple, No JVD, No thyromegaly Cardiovascular: Other (Positive S1-S2 no extra heart sounds) Respiratory: Other (Good air exchange in all lung gale no wheezing no crackles.) Abdomen: Normal bowel sounds, Soft Extremities: No cyanosis Skin: No rashes - Results Results: Laboratory Results WBC 5.9 x10^3/uL (4.8-10.8) 04/28/23 06:20 RBC 2.72 10^6/uL (4.70-6.10) L 04/28/23 06:20 Hgb 9.2 g/dL (14.0-18.0) L 04/28/23 06:20 Hct 27.2 % (42.0-52.0) L 04/28/23 06:20 MCV 100.0 fL (80.0-94.0) H 04/28/23 06:20 MCH 33.8 pg (27.0-31.0) H 04/28/23 06:20 MCHC 33.8 g/dL (32.0-36.0) 04/28/23 06:20 RDW 20.2 % (12.0-15.0) H 04/28/23 06:20 Plt Count 105 10^3/uL (130-450) L 04/28/23 06:20 MPV 9.6 fL (7.4-11.4) 04/28/23 06:20 Neut # (Auto) 4.5 10^3/uL (1.5-6.6) 04/28/23 06:20 Lymph # (Auto) 0.7 10^3/uL (1.5-3.5) L 04/28/23 06:20 [place] # (Auto) 0.5 10^3/uL (0.0-1.0) 04/28/23 06:20 Eos # (Auto) 0.0 10^3/uL (0.0-0.7) 04/28/23 06:20 Baso # (Auto) 0.0 10^3/uL (0.0-0.1) 04/28/23 06:20 Absolute Nucleated RBC 0.00 x10^3/uL 04/28/23 06:20 Total Counted 100 04/26/23 11:53 Band Neuts % (Manual) 9 % (0-10) 04/26/23 11:53 Abnorm Lymph % (Manual) 0 % 04/26/23 11:53 Nucleated RBC % 0.0 /100WBC 04/28/23 06:20 Neutrophils # (Manual) 1.4 10^3/uL (1.5-6.6) L 04/26/23 11:53 Lymphocytes # (Manual) 0.3 10^3/uL (1.5-3.5) L 04/26/23 11:53 Monocytes # (Manual) 0.1 10^3/uL (0.0-1.0) 04/26/23 11:53 Eosinophils # (Manual) 0.0 10^3/uL (0-0.7) 04/26/23 11:53 Basophils # (Manual) 0.0 10^3/uL (0-0.1) 04/26/23 11:53 Differential Comment MANUAL DIFFERENTIAL 04/26/23 11:53 Manual Slide Review Indicated 04/28/23 06:20 WBC Morphology NORMAL APPEARANCE (NORMAL) 04/26/23 11:53 Platelet Estimate DECREASED (<130,000) (NORMAL) 04/28/23 06:20 Platelet Morphology NORMAL APPEARANCE (NORMAL) 04/27/23 04:42 RBC Morph Micro Appear 1+ ANISOCYTOSIS (NORMAL) 1+ MACROCYTOSIS (NORMAL) 1+ HYPOCHROMASIA (NORMAL) 1+ OVALOCYTES (NORMAL) 04/28/23 06:20 RBC Morph Micro Appear 1+ ANISOCYTOSIS (NORMAL) 1+ MACROCYTOSIS (NORMAL) 1+ HYPOCHROMASIA (NORMAL) 1+ OVALOCYTES (NORMAL) 04/28/23 06:20 RBC Morph Micro Appear 1+ ANISOCYTOSIS (NORMAL) 1+ MACROCYTOSIS (NORMAL) 1+ HYPOCHROMASIA (NORMAL) 1+ OVALOCYTES (NORMAL) 04/28/23 06:20 RBC Morph Micro Appear 1+ ANISOCYTOSIS (NORMAL) 1+ MACROCYTOSIS (NORMAL) 1+ HYPOCHROMASIA (NORMAL) 1+ OVALOCYTES (NORMAL) 04/28/23 06:20 PT 13.0 secs (9.9-12.6) H 04/26/23 11:53 INR 1.2 (0.8-1.2) 04/26/23 11:53 APTT secs (24.9-33.3) 04/26/23 21:04 VBG pH 7.380 (7.31-7.41) 04/28/23 06:20 VBG pCO2 34.8 mmHg (41-51) L 04/26/23 11:53 VBG pO2 120.9 mmHg (25-47) H 04/26/23 11:53 VBG HCO3 21.9 mmol/L (23-28) L 04/26/23 11:53 VBG Total CO2 22.9 mmol/L (24-29) L 04/26/23 11:53 VBG O2 Saturation 97.6 % (60-80) H 04/26/23 11:53 VBG Base Excess -2.3 mmol/L (-2 - +2) L 04/26/23 11:53 Ionized Calcium 1.19 mmol/L (1.15-1.33) 04/28/23 06:20 Sodium 142 mmol/L (135-145) 04/28/23 06:20 Potassium 3.7 mmol/L (3.5-4.5) 04/28/23 06:20 Chloride 116 mmol/L (101-111) H 04/28/23 06:20 Carbon Dioxide 15 mmol/L (21-32) L 04/28/23 06:20 Anion Gap 11.0 (6-13) 04/28/23 06:20 BUN 18 mg/dL (6-20) 04/28/23 06:20 Creatinine 0.9 mg/dL (0.6-1.3) 04/28/23 06:20 Estimated GFR (MDRD) 80 (>89) L 04/28/23 06:20 Glucose 142 mg/dL (74-104) H 04/28/23 06:20 POC Whole Bld Glucose 133 mg/dL (70 - 100) H 04/27/23 22:52 Lactic Acid 1.1 mmol/L (0.5-2.2) 04/26/23 20:45 Calcium 7.5 mg/dL (8.5-10.3) L 04/28/23 06:20 Ionized Calcium YES 04/27/23 10:40 Phosphorus 3.6 mg/dL (2.5-5.0) 04/28/23 06:20 Magnesium 2.0 mg/dL (1.7-2.3) 04/28/23 06:20 Total Bilirubin 0.6 mg/dL (0.2-1.0) 04/28/23 06:20 AST 129 IU/L (10-42) H 04/28/23 06:20 ALT 52 IU/L (10-60) 04/28/23 06:20 Alkaline Phosphatase 114 IU/L (42-121) 04/28/23 06:20 Total Creatine Kinase 1008 IU/L (30-223) H* 04/28/23 06:20 Troponin I High Sens 38.6 ng/L (2.3-19.7) H* 04/27/23 04:42 B-Natriuretic Peptide 587 pg/mL (5-100) H 04/28/23 06:20 Total Protein 3.9 g/dL (6.4-8.9) L 04/28/23 06:20 Albumin 2.0 g/dL (3.2-5.5) L 04/28/23 06:20 Globulin 1.9 g/dL (2.1-4.2) L 04/28/23 06:20 Albumin/Globulin Ratio 1.1 (1.0-2.2) 04/28/23 06:20 Vitamin B12 641 pg/mL (180-914) 04/27/23 04:42 Folate 16.5 ng/mL (5.90 - >24.8) 04/27/23 04:42 TSH 1.13 uIU/mL (0.34-5.60) 04/26/23 11:53 Urine Color YELLOW 04/26/23 12:24 Urine Clarity CLEAR (CLEAR) 04/26/23 12:24 Urine pH 7.0 PH (5.0-7.5) 04/26/23 12:24 Ur Specific [place] <=1.005 (1.002-1.030) 04/26/23 12:24 Urine Protein NEGATIVE mg/dL (NEGATIVE) 04/26/23 12:24 Urine Glucose (UA) NEGATIVE mg/dL (NEGATIVE) 04/26/23 12:24 Urine Ketones NEGATIVE mg/dL (NEGATIVE) 04/26/23 12:24 Urine Occult Blood TRACE-INTA (NEGATIVE) 04/26/23 12:24 Urine Nitrite NEGATIVE (NEGATIVE) 04/26/23 12:24 Urine Bilirubin NEGATIVE (NEGATIVE) 04/26/23 12:24 Urine Urobilinogen 1 (NORMAL) E.U./dL (NORMAL) 04/26/23 12:24 Ur Leukocyte Esterase NEGATIVE (NEGATIVE) 04/26/23 12:24 Urine RBC 0-5 /HPF (0-5) 04/26/23 12:24 Urine WBC 0-3 /HPF (0-3) 04/26/23 12:24 Ur Squamous Epith Cells FEW Squamous (<= Few) 04/26/23 12:24 Urine Bacteria Rare /HPF (None Seen) 04/26/23 12:24 Urine Culture Comments NOT INDICATED 04/26/23 12:24 Nasal Adenovirus (PCR) NOT DETECTED 04/26/23 13:45 Nasal B. parapertussis DNA (PCR) NOT DETECTED 04/26/23 13:45 Nasal Coronavir 229E PCR NOT DETECTED 04/26/23 13:45 Nasal Coronavir HKU1 PCR NOT DETECTED 04/26/23 13:45 Nasal Coronavir NL63 PCR NOT DETECTED 04/26/23 13:45 Nasal Coronavir OC43 PCR NOT DETECTED 04/26/23 13:45 Nasal Enterovir/Rhinovir PCR NOT DETECTED 04/26/23 13:45 Nasal Influenza B PCR NOT DETECTED 04/26/23 13:45 Nasal Influenza A PCR NOT DETECTED 04/26/23 13:45 Nasal Parainfluen 1 PCR NOT DETECTED 04/26/23 13:45 Nasal Parainfluen 2 PCR NOT DETECTED 04/26/23 13:45 Nasal Parainfluen 3 PCR NOT DETECTED 04/26/23 13:45 Nasal Parainfluen 4 PCR NOT DETECTED 04/26/23 13:45 Nasal RSV (PCR) NOT DETECTED 04/26/23 13:45 Nasal Screen MRSA (PCR) NEGATIVE (NEGATIVE) 04/26/23 19:03 Nasal B.pertussis DNA PCR NOT DETECTED 04/26/23 13:45 Nasal C.pneumoniae (PCR) NOT DETECTED 04/26/23 13:45 Bladimir Human Metapneumo PCR NOT DETECTED 04/26/23 13:45 Nasal M.pneumoniae (PCR) NOT DETECTED 04/26/23 13:45 Nasal SARS-CoV-2 (PCR) NOT DETECTED 04/26/23 13:45 Urine Opiates Screen NEGATIVE (NEGATIVE) 04/26/23 12:24 Ur Buprenorphine Scrn NEGATIVE (NEGATIVE) 04/26/23 12:24 Ur Oxycodone Screen POSITIVE (NEGATIVE) H 04/26/23 12:24 Urine Methadone Screen NEGATIVE (NEGATIVE) 04/26/23 12:24 Ur Barbiturates Screen NEGATIVE (NEGATIVE) 04/26/23 12:24 Ur Tricyclics Screen NEGATIVE (NEGATIVE) 04/26/23 12:24 Ur Phencyclidine Scrn NEGATIVE (NEGATIVE) 04/26/23 12:24 Ur Amphetamine Screen NEGATIVE (NEGATIVE) 04/26/23 12:24 U Methamphetamines Scrn NEGATIVE (NEGATIVE) 04/26/23 12:24 U Benzodiazepines Scrn NEGATIVE (NEGATIVE) 04/26/23 12:24 Urine Cocaine Screen NEGATIVE (NEGATIVE) 04/26/23 12:24 U Cannabinoids Screen NEGATIVE (NEGATIVE) 04/26/23 12:24 Ur Drug Screen Comment CUTOFF CONC BELOW: 04/26/23 12:24 Ethyl Alcohol 83.7 mg/dL 04/26/23 11:53 Blood Type AB POSITIVE 04/26/23 11:53 Blood Type Recheck AB POSITIVE 04/26/23 11:35 Antibody Screen NEGATIVE 04/26/23 11:53 Crossmatch IS Only See Detail 04/26/23 11:53 ABX Reporting Has patient been on IV antibiotics over the past 48 hours?: No Current Medications - Current Medications Current Medications: Active Medications Albuterol/Ipratropium (Ipratropium/Albuterol 3 Ml Neb) 3 ml INH Q4HR PRN PRN Reason: Wheezing Chlorhexidine Gluconate (Chlorhexidine Gluconate 15 Ml Udc) 15 ml PO BID SHAHID Last Admin: 04/30/23 20:21 Dose: Not Given Glycopyrrolate (Glycopyrrolate 1 Mg/5 Ml Vial) 0.2 mg SUBQ Q4H PRN PRN Reason: Excessive secretions Last Admin: 04/30/23 20:24 Dose: 0.2 mg Hydromorphone HCl (Hydromorphone 0.5 Mg/0.5 Ml Syringe) 0.5 mg IVP Q2H PRN PRN Reason: Pain 8 to 10 Last Admin: 04/29/23 10:42 Dose: 0.5 mg Acetaminophen (Acetaminophen) 1,000 mg in 100 mls @ 400 mls/hr IV Q6HR PRN PRN Reason: Pain or Fever > 38C (100.4F) Last Infusion: 04/26/23 21:18 Dose: Infused Loperamide HCl (Loperamide 2 Mg Capsule) 2 mg PO Q2H PRN PRN Reason: Diarrhea Lorazepam (Lorazepam 2 Mg/Ml Vial) 2 mg IVP Q30M PRN; Protocol PRN Reason: CIWA >8 Lorazepam (Lorazepam 2 Mg/Ml Vial) 1 mg IVP Q6H PRN PRN Reason: Anxiety/Agitation Morphine Sulfate (Morphine Violet 10 Mg/0.5 Ml Oral Syringe) 10 mg SL Q2HR PRN PRN Reason: Moderate Pain (Level 4-6)/SOA Last Admin: 04/30/23 20:21 Dose: 10 mg Ondansetron HCl (Ondansetron Odt 4 Mg Tablet) 4 mg TL Q8H PRN PRN Reason: Nausea / Vomiting Ondansetron HCl (Ondansetron 4 Mg/2 Ml Vial) 4 mg IVP Q8H PRN PRN Reason: Nausea / Vomiting Sodium Chloride (Sodium Chloride Flush 0.9% 10 Ml Syringe) 10 ml IVP 0100,0900,1700 SHAHID Last Admin: 04/30/23 19:23 Dose: 10 ml Sodium Chloride (Sodium Chloride Flush 0.9% 10 Ml Syringe) 10 ml IVP PRN PRN PRN Reason: NEEDED PER PROVIDER ORDERS Last Admin: 04/28/23 04:52 Dose: 30 ml Aspirin EC [Ecotrin] 81 mg PO DAILY 04/26/23 Atorvastatin Calcium [Lipitor] 80 mg PO DAILY 04/26/23 Benazepril HCl [Lotensin] 20 mg PO DAILY 04/26/23 Ferrous Sulfate [Slow Fe] 137 mg PO DAILY 04/26/23 Ibuprofen [Motrin] 1 tablet PO BID 04/26/23 Multivitamin 1 each PO DAILY 04/26/23 Oxycodone HCl/Acetaminophen [Percocet 10-325 mg Tablet] 1 each PO BID 04/26/23 Prednisone [Dorian] 5 mg PO Q48H 04/26/23 Promethazine [Phenergan] 25 mg PO DAILY 04/26/23 Naproxen Sodium [Aleve] 220 mg PO HS 04/27/23 Triamcinolone 0.1% Cream [Kenalog 0.1% Cream] 1 applic TOP PRN PRN 04/27/23
== END 2023-05-01 08:55 | disposition hospice, home (50) | DRG 871 ==
LOC: ED 11:41 → EDBD 11:41 → MERGE 18:06 → ICU 18:06
PROVIDERS: ADMIT Internal Medicine; ATTEND Internal Medicine
PROC: 30233N1 Transfusion of Nonautologous Red Blood Cells into Peripheral Vein, Percutaneous Approach (ICD-10-PCS; principal; 2023-04-27)
DX: R41.0 Disorientation, unspecified (principal); F03.A0 Unspecified dementia, mild, without behavioral disturbance, psychotic disturbance, mood disturbance, and anxiety; I10 Essential (primary) hypertension; R57.8 Other shock; I26.93 Single subsegmental thrombotic pulmonary embolism without acute cor pulmonale; S12.201A Unspecified nondisplaced fracture of third cervical vertebra, initial encounter for closed fracture; D72.819 Decreased white blood cell count, unspecified; E87.6 Hypokalemia; E87.20 Acidosis, unspecified; S12.301A Unspecified nondisplaced fracture of fourth cervical vertebra, initial encounter for closed fracture; R64 Cachexia; Z68.1 Body mass index [BMI] 19.9 or less, adult; M62.82 Rhabdomyolysis; D61.818 Other pancytopenia; J90 Pleural effusion, not elsewhere classified; T68.XXXA Hypothermia, initial encounter; R00.1 Bradycardia, unspecified; R94.31 Abnormal electrocardiogram [ECG] [EKG]; G89.29 Other chronic pain; M54.9 Dorsalgia, unspecified; F03.90 Unspecified dementia, unspecified severity, without behavioral disturbance, psychotic disturbance, mood disturbance, and anxiety; D64.9 Anemia, unspecified; Z11.52 Encounter for screening for COVID-19; K52.9 Noninfective gastroenteritis and colitis, unspecified; W19.XXXA Unspecified fall, initial encounter; Y92.029 Unspecified place in mobile home as the place of occurrence of the external cause; F10.20 Alcohol dependence, uncomplicated; I25.10 Atherosclerotic heart disease of native coronary artery without angina pectoris; K59.09 Other constipation; F32.A Depression, unspecified; F41.9 Anxiety disorder, unspecified; E86.9 Volume depletion, unspecified; I11.0 Hypertensive heart disease with heart failure; I50.9 Heart failure, unspecified; Y90.4 Blood alcohol level of 80-99 mg/100 ml; R74.8 Abnormal levels of other serum enzymes; Z51.5 Encounter for palliative care; Z63.4 Disappearance and death of family member; Z66 Do not resuscitate; Z79.82 Long term (current) use of aspirin; Z79.891 Long term (current) use of opiate analgesic; Z79.899 Other long term (current) drug therapy; Z86.73 Personal history of transient ischemic attack (TIA), and cerebral infarction without residual deficits; Z91.81 History of falling; Z95.5 Presence of coronary angioplasty implant and graft
CPT/HCPCS: 36415; 36556; 70450; 71045; 71260; 72125; 74177; 80048; 80053; 80306; 81001; 82330; 82550; 82607; 82746; 82803; 83605; 83735; 83880; 84100; 84443; 84484; 85014; 85018; 85025; 85610; 85730; 86850; 86900; 86901; 86920; 87040; 87150; 87633; 90471; 90715; 93005; 96365; 96366; 96368; 96376; 99285; 99291; 99292; A9270; G0480; J0131; J1170; J3370; J3411; J7040; J7120; P9016; P9047; Q9967; 80320; 85520; 87086